=== PATIENT | male | born 1950 | race Caucasian/White ===

== ENCOUNTER 2019-12-07 14:45 | Outpatient (CLI) | payer MEDICARE, SELFPAY ==
[2019-12-07 15:21] LABS: Add Urine Microscopic? NO; Appearance Urine Clear (Clear); Bilirubin Urine Negative (Negative); Blood Urine Negative (Negative); Color Urine Yellow (Yellow); Glucose Urine UA Negative (Negative); Ketones Urine Negative (Negative); Leukocyte Esterase Ur Negative (Negative); Nitrate Urine Negative (Negative); Protein Urine Negative (Negative); Specific Grav Ur >= 1.030 (1.010-1.020); Urobilinogen Urine 0.2 mg/dL (0.2-1.0)
[2019-12-07 15:32] LABS: Hemoglobin A1C 5.5 % (<5.7)
[2019-12-07 15:39] LABS: Alanine Aminotransferase 24 U/L (16-63); Albumin Level 3.8 g/dL (3.4-5.0); Alkaline Phosphatase 59 U/L (46-116); Anion Gap 13.4 mmol/L (7-16); Aspartate Amino Transferase 19 U/L (15-37); Bilirubin,Total 0.6 mg/dL (0.00-1.00); Blood Urea Nitrogen 22 mg/dL (7-18); Calcium 8.6 mg/dL (8.5-10.1); Carbon Dioxide 27 mmol/L (21-32); Chloride 108 mmol/L (98-108); Cholesterol 225 mg/dL (0-200); Creatine Kinase 123 U/L (39-308); Estimated Glomerular Filt Rate > 60; Free T4 Free Thyroxine 0.96 ng/dL (0.76-1.46); Glucose 88 mg/dL (70-99); HDL Direct 44 mg/dL (40-60); LDL Cholesterol Calculated 142 mg/dL (<130); Osmolality Calculated 300 mOsm/kg (285-295); Potassium 4.4 mmol/L (3.5-5.1); Sodium 144 mmol/L (136-145); Thyroid Stimulating Hormone 1.98 uIU/mL (0.36-3.74); Total Protein 7.3 g/dL (6.4-8.2); Triglycerides 193 mg/dL (0-150)
== END 2019-12-07 14:46 | disposition home or self-care (01) ==
LOC: CHSLAB 14:47
PROVIDERS: PCP Internal Medicine; Visit Provider Internal Medicine
DX: E78.2 Mixed hyperlipidemia (principal); I10 Essential (primary) hypertension; E03.4 Atrophy of thyroid (acquired); R73.01 Impaired fasting glucose
CPT/HCPCS: 36415; 80053; 80061; 81003; 82550; 83036; 84439; 84443

== ENCOUNTER 2020-03-06 08:15 | Outpatient (CLI) | payer MEDICARE, SELFPAY ==
[2020-03-06 09:06] LABS: Cholesterol 162 mg/dL (0-200); HDL Direct 43 mg/dL (40-60); LDL Cholesterol Calculated 83 mg/dL (<130); Triglycerides 181 mg/dL (0-150)
== END 2020-03-06 08:16 | disposition home or self-care (01) ==
LOC: CHSLAB 08:16
PROVIDERS: PCP Internal Medicine; Visit Provider Internal Medicine
DX: E78.5 Hyperlipidemia, unspecified (principal); E03.9 Hypothyroidism, unspecified
CPT/HCPCS: 36415; 80061

== ENCOUNTER 2020-07-04 09:31 | Outpatient (CLI) | payer MEDICARE, SELFPAY ==
[2020-07-04 09:43] LABS: Appearance Urine Clear (Clear); Basophils Absolute Auto 0.02 K/mm3 (0.00-0.10); Basophils Percent Auto 0.3 % (0.0-1.0); Bilirubin Urine Negative (Negative); Color Urine Yellow (Yellow); Eosinophils Absolute Auto 0.19 K/mm3 (0.02-0.50); Eosinophils Percent Auto 2.8 % (1.0-6.0); Glucose Urine UA Negative (Negative); Hematocrit 44.1 % (37.0-46.0); Hemoglobin 14.8 g/dL (12.4-15.3); Immature Granulocyte Absolute 0.04 K/mm3 (0.00-0.00); Immature Granulocyte Percent A 0.6 % (0.0-0.0); Ketones Urine Negative (Negative); Leukocyte Esterase Ur Negative LEU/UL (Negative); Lymphocytes Absolute Auto 1.92 K/mm3 (1.10-4.50); Lymphocytes Percent Auto 28.2 % (18.0-42.0); Mean Corpuscular HGB Conc 33.6 g/dL (32.0-36.0); Mean Corpuscular Hemoglobin 32.6 pg (27.0-31.0); Mean Corpuscular Volume 97.1 fL (78.0-102.0); Mean Platelet Volume 9.1 fl (8.7-11.0); Monocytes Percent Auto 10.3 % (2.0-11.0); Neutrophils Absolute Auto 3.9 K/mm3 (1.7-7.2); Neutrophils Percent Auto 57.8 % (50.0-70.0); Nitrate Urine Negative (Negative); Platelet Count Result 211 K/mm3 (150-420); Protein Urine Negative (Negative); Red Blood Count 4.54 M/mm3 (4.70-6.10); Red Cell Distribution Width 13.6 % (11.6-14.4); Specific Grav Ur >= 1.030 (1.010-1.020); Urobilinogen Urine 0.2 mg/dL (0.2-1.0); White Blood Count 6.8 K/mm3 (4.8-10.8); pH Urine 5.5 (5.0-8.0)
[2020-07-04 09:46] LABS: Add Urine Microscopic? YES; Blood Urine Trace-Intact (Negative)
[2020-07-04 09:48] LABS: Bacteria Urine Trace /hpf; RBC Urine 0-2 /hpf (0-2); WBC Urine 0-3 /hpf (0-3)
[2020-07-04 09:49] LABS: Mucus Urine Few /lpf
[2020-07-04 09:57] LABS: Creatinine Urine 221.28 mg/dL (40-278); MALB Creatinine Ratio 5.8 mg/g (0-30); Microalbumin Urine Random < 13.0 mg/L
[2020-07-04 10:01] LABS: Hemoglobin A1C 5.4 % (<5.7)
[2020-07-04 10:37] LABS: Alanine Aminotransferase 25 U/L (16-63); Albumin Level 3.7 g/dL (3.4-5.0); Alkaline Phosphatase 64 U/L (46-116); Anion Gap 9 mmol/L (8-16); Aspartate Amino Transferase 17 U/L (15-37); Bilirubin,Total 0.6 mg/dL (0.00-1.00); Blood Urea Nitrogen 19 mg/dL (7-18); Calcium 8.6 mg/dL (8.5-10.1); Carbon Dioxide 29 mmol/L (21-32); Chloride 106 mmol/L (98-108); Cholesterol 149 mg/dL (0-200); Creatine Kinase 77 U/L (39-308); Estimated Glomerular Filt Rate > 60; Free T3 2.27 pg/mL (2.18-3.98); Free T4 Free Thyroxine 0.88 ng/dL (0.76-1.46); Glucose 100 mg/dL (70-99); HDL Direct 41 mg/dL (40-60); LDL Cholesterol Calculated 83 mg/dL (<130); Osmolality Calculated 300 mOsm/kg (285-295); Potassium 4.3 mmol/L (3.5-5.1); Sodium 144 mmol/L (136-145); Thyroid Stimulating Hormone 2.28 uIU/mL (0.36-3.74); Total Protein 6.9 g/dL (6.4-8.2); Triglycerides 127 mg/dL (0-150)
== END 2020-07-04 09:32 | disposition home or self-care (01) ==
LOC: CHSLAB 09:33
PROVIDERS: PCP Internal Medicine; Visit Provider Internal Medicine
DX: E89.0 Postprocedural hypothyroidism (principal); E78.5 Hyperlipidemia, unspecified; R73.01 Impaired fasting glucose
CPT/HCPCS: 36415; 80053; 80061; 81001; 82043; 82550; 83036; 84439; 84443; 84481; 85025

== ENCOUNTER 2020-09-11 08:54 | Outpatient (CLI) | payer MEDICARE, SELFPAY ==
[2020-09-11 10:40] LABS: Aspartate Amino Transferase 21 U/L (15-37); Cholesterol 169 mg/dL (0-200); HDL Direct 43 mg/dL (40-60); LDL Cholesterol Calculated 91 mg/dL (<130); Triglycerides 174 mg/dL (0-150)
== END 2020-09-11 08:55 | disposition home or self-care (01) ==
LOC: CHSLAB 08:57
PROVIDERS: PCP Internal Medicine; Visit Provider Specialist
DX: E78.5 Hyperlipidemia, unspecified (principal)
CPT/HCPCS: 36415; 80061; 84450

== ENCOUNTER 2020-12-23 08:45 | Outpatient (CLI) | payer MEDICARE, SELFPAY ==
[2020-12-23 09:33] LABS: Aspartate Amino Transferase 21 U/L (15-37); Cholesterol 139 mg/dL (0-200); HDL Direct 40 mg/dL (40-60); LDL Cholesterol Calculated 67 mg/dL (<130); Triglycerides 159 mg/dL (0-150)
== END 2020-12-23 08:46 | disposition home or self-care (01) ==
LOC: CHSLAB 08:49
PROVIDERS: PCP Internal Medicine; Visit Provider Specialist
DX: E78.5 Hyperlipidemia, unspecified (principal)
CPT/HCPCS: 36415; 80061; 84450

== ENCOUNTER 2021-01-06 08:31 | Outpatient (CLI) | payer MEDICARE, SELFPAY ==
[2021-01-06 08:45] LABS: Appearance Urine Clear (Clear); Bilirubin Urine Negative (Negative); Color Urine Light Yellow (Yellow); Glucose Urine UA Negative (Negative); Ketones Urine Negative (Negative); Leukocyte Esterase Ur Negative LEU/UL (Negative); Nitrate Urine Negative (Negative); Protein Urine Negative (Negative); Specific Grav Ur >= 1.030 (1.010-1.020); Urobilinogen Urine 0.2 mg/dL (0.2-1.0)
[2021-01-06 08:45] LABS: Basophils Absolute Auto 0.03 K/mm3 (0.00-0.10); Basophils Percent Auto 0.5 % (0.0-1.0); Eosinophils Absolute Auto 0.23 K/mm3 (0.02-0.50); Eosinophils Percent Auto 3.5 % (1.0-6.0); Hematocrit 41.8 % (37.0-46.0); Hemoglobin 14.3 g/dL (12.4-15.3); Immature Granulocyte Absolute 0.03 K/mm3 (0.00-0.00); Immature Granulocyte Percent A 0.5 % (0.0-0.0); Lymphocytes Absolute Auto 1.81 K/mm3 (1.10-4.50); Lymphocytes Percent Auto 27.8 % (18.0-42.0); Mean Corpuscular HGB Conc 34.2 g/dL (32.0-36.0); Mean Corpuscular Hemoglobin 33.4 pg (27.0-31.0); Mean Corpuscular Volume 97.7 fL (78.0-102.0); Mean Platelet Volume 9.3 fl (8.7-11.0); Monocytes Absolute Auto 0.65 K/mm3 (0.10-0.90); Neutrophils Absolute Auto 3.8 K/mm3 (1.7-7.2); Neutrophils Percent Auto 57.7 % (50.0-70.0); Platelet Count Result 192 K/mm3 (150-420); Red Blood Count 4.28 M/mm3 (4.70-6.10); Red Cell Distribution Width 13.7 % (11.6-14.4); White Blood Count 6.5 K/mm3 (4.8-10.8)
[2021-01-06 08:53] LABS: Add Urine Microscopic? YES; Bacteria Urine None seen /hpf; Blood Urine Trace-Intact (Negative); Mucus Urine Few /lpf; RBC Urine 0-2 /hpf (0-2); Squamous Epithelial Cell Urine Rare /hpf (Few); WBC Urine None seen /hpf (0-3)
[2021-01-06 09:00] LABS: Creatinine Urine 153.62 mg/dL (40-278); MALB Creatinine Ratio 8.4 mg/g (0-30); Microalbumin Urine Random < 13.0 mg/L
[2021-01-06 09:14] LABS: Hemoglobin A1C 5.4 % (<5.7)
[2021-01-06 09:33] LABS: Alanine Aminotransferase 39 U/L (16-63); Albumin Level 3.7 g/dL (3.4-5.0); Alkaline Phosphatase 76 U/L (46-116); Anion Gap 12 mmol/L (8-16); Aspartate Amino Transferase 26 U/L (15-37); Bilirubin,Total 0.5 mg/dL (0.00-1.00); Blood Urea Nitrogen 25 mg/dL (7-18); Calcium 8.8 mg/dL (8.5-10.1); Carbon Dioxide 25 mmol/L (21-32); Chloride 110 mmol/L (98-108); Cholesterol 130 mg/dL (0-200); Creatine Kinase 107 U/L (39-308); Estimated Glomerular Filt Rate > 60; Free T3 2.44 pg/mL (2.18-3.98); Free T4 Free Thyroxine 0.92 ng/dL (0.76-1.46); Glucose 104 mg/dL (70-99); HDL Direct 37 mg/dL (40-60); LDL Cholesterol Calculated 53 mg/dL (<130); Osmolality Calculated 308 mOsm/kg (285-295); Potassium 4.6 mmol/L (3.5-5.1); Prostate Specific Antigen 1.3 ng/mL (< OR = 4.0); Sodium 147 mmol/L (136-145); Thyroid Stimulating Hormone 0.67 uIU/mL (0.36-3.74); Total Protein 6.7 g/dL (6.4-8.2); Triglycerides 200 mg/dL (0-150)
== END 2021-01-06 08:32 | disposition home or self-care (01) ==
LOC: CHSLAB 08:34
PROVIDERS: PCP Internal Medicine; Visit Provider Internal Medicine
DX: E03.9 Hypothyroidism, unspecified (principal); E78.5 Hyperlipidemia, unspecified; R73.01 Impaired fasting glucose; Z12.5 Encounter for screening for malignant neoplasm of prostate
CPT/HCPCS: 36415; 80053; 80061; 81001; 82043; 82550; 83036; 84153; 84439; 84443; 84481; 85025; G0103

== ENCOUNTER 2021-08-28 09:48 | Outpatient (CLI) | payer MEDICARE, SELFPAY ==
[2021-08-28 10:11] LABS: Hemoglobin A1C 5.7 % (<5.7)
[2021-08-28 10:21] LABS: Appearance Urine Clear (Clear); Bilirubin Urine Negative (Negative); Color Urine Light Yellow (Yellow); Glucose Urine UA Negative (Negative); Ketones Urine Negative (Negative); Leukocyte Esterase Ur Negative (Negative); Nitrate Urine Negative (Negative); Protein Urine Negative (Negative); Specific Grav Ur >= 1.030 (1.010-1.020); Urobilinogen Urine 0.2 mg/dL (0.2-1.0); pH Urine 5.5 (5.0-8.0)
[2021-08-28 10:26] LABS: Add Urine Microscopic? YES; Blood Urine Trace-Intact (Negative)
[2021-08-28 10:27] LABS: Bacteria Urine Trace /hpf; Mucus Urine Few /lpf; RBC Urine 0-2 /hpf (0-2); WBC Urine 0-3 /hpf (0-3)
[2021-08-28 10:46] LABS: Alanine Aminotransferase 28 U/L (16-63); Albumin Level 3.7 g/dL (3.4-5.0); Alkaline Phosphatase 60 U/L (46-116); Anion Gap 7 mmol/L (8-16); Aspartate Amino Transferase 18 U/L (15-37); Bilirubin,Total 0.5 mg/dL (0.00-1.00); Blood Urea Nitrogen 24 mg/dL (7-18); Calcium 8.4 mg/dL (8.5-10.1); Carbon Dioxide 30 mmol/L (21-32); Chloride 105 mmol/L (98-108); Cholesterol 150 mg/dL (0-200); Creatine Kinase 84 U/L (39-308); Estimated Glomerular Filt Rate > 60; Free T3 2.71 pg/mL (2.18-3.98); Free T4 Free Thyroxine 0.98 ng/dL (0.76-1.46); Glucose 100 mg/dL (70-99); HDL Direct 39 mg/dL (40-60); LDL Cholesterol Calculated 73 mg/dL (<130); Osmolality Calculated 298 mOsm/kg (285-295); Potassium 4.4 mmol/L (3.5-5.1); Sodium 142 mmol/L (136-145); Thyroid Stimulating Hormone 1.84 uIU/mL (0.36-3.74); Triglycerides 189 mg/dL (0-150)
== END 2021-08-28 09:49 | disposition home or self-care (01) ==
LOC: CHSLAB 09:51
PROVIDERS: PCP Internal Medicine; Visit Provider Internal Medicine
DX: R73.01 Impaired fasting glucose (principal); E78.2 Mixed hyperlipidemia; I10 Essential (primary) hypertension; E03.4 Atrophy of thyroid (acquired)
CPT/HCPCS: 36415; 80053; 80061; 81001; 82550; 83036; 84439; 84443; 84481

== ENCOUNTER 2022-03-25 08:00 | Outpatient (CLI) | payer MEDICARE, SELFPAY ==
[2022-03-25 08:17] LABS: Basophils Absolute Auto 0.04 K/mm3 (0.00-0.10); Basophils Percent Auto 0.5 % (0.0-1.0); Eosinophils Absolute Auto 0.28 K/mm3 (0.02-0.50); Eosinophils Percent Auto 3.3 % (1.0-6.0); Hematocrit 44.9 % (37.0-46.0); Hemoglobin 15.3 g/dL (12.4-15.3); Immature Granulocyte Absolute 0.05 K/mm3 (0.00-0.00); Immature Granulocyte Percent A 0.6 % (0.0-0.0); Lymphocytes Absolute Auto 2.72 K/mm3 (1.10-4.50); Mean Corpuscular HGB Conc 34.1 g/dL (32.0-36.0); Mean Corpuscular Hemoglobin 32.9 pg (27.0-31.0); Mean Corpuscular Volume 96.6 fL (78.0-102.0); Mean Platelet Volume 9.1 fl (8.7-11.0); Monocytes Absolute Auto 0.85 K/mm3 (0.10-0.90); Neutrophils Absolute Auto 4.6 K/mm3 (1.7-7.2); Neutrophils Percent Auto 53.6 % (50.0-70.0); Platelet Count Result 205 K/mm3 (150-420); Red Blood Count 4.65 M/mm3 (4.70-6.10); Red Cell Distribution Width 13.7 % (11.6-14.4); White Blood Count 8.5 K/mm3 (4.8-10.8)
[2022-03-25 08:26] LABS: Add Urine Microscopic? NO; Appearance Urine Clear (Clear); Bilirubin Urine Negative (Negative); Blood Urine Negative (Negative); Color Urine Yellow (Yellow); Glucose Urine UA Negative (Negative); Ketones Urine Negative (Negative); Leukocyte Esterase Ur Negative (Negative); Nitrate Urine Negative (Negative); Protein Urine Negative (Negative); Specific Grav Ur >= 1.030 (1.010-1.020); Urobilinogen Urine 0.2 mg/dL (0.2-1.0)
[2022-03-25 08:40] LABS: Hemoglobin A1C 5.5 % (<5.7)
[2022-03-25 09:05] LABS: Alanine Aminotransferase 23 U/L (16-63); Alkaline Phosphatase 62 U/L (46-116); Anion Gap 7 mmol/L (8-16); Aspartate Amino Transferase 18 U/L (15-37); Bilirubin,Total 0.7 mg/dL (0.00-1.00); Blood Urea Nitrogen 24 mg/dL (7-18); Calcium 8.8 mg/dL (8.5-10.1); Carbon Dioxide 31 mmol/L (21-32); Chloride 105 mmol/L (98-108); Cholesterol 185 mg/dL (0-200); Creatine Kinase 99 U/L (39-308); Estimated Glomerular Filt Rate 60; Free T3 2.95 pg/mL (2.18-3.98); Free T4 Free Thyroxine 0.75 ng/dL (0.76-1.46); Glucose 101 mg/dL (70-99); HDL Direct 46 mg/dL (40-60); LDL Cholesterol Calculated 98 mg/dL (<130); Osmolality Calculated 300 mOsm/kg (285-295); Potassium 4.1 mmol/L (3.5-5.1); Prostate Specific Antigen 1.4 ng/mL (< OR = 4.0); Sodium 143 mmol/L (136-145); Thyroid Stimulating Hormone 5.55 uIU/mL (0.36-3.74); Total Protein 7.4 g/dL (6.4-8.2); Triglycerides 205 mg/dL (0-150)
== END 2022-03-25 08:01 | disposition home or self-care (01) ==
LOC: CHSLAB 08:02
PROVIDERS: PCP Internal Medicine; Visit Provider Internal Medicine
DX: E89.0 Postprocedural hypothyroidism (principal); E78.2 Mixed hyperlipidemia; R73.01 Impaired fasting glucose; I10 Essential (primary) hypertension; Z12.5 Encounter for screening for malignant neoplasm of prostate
CPT/HCPCS: 36415; 80053; 80061; 81003; 82550; 83036; 84153; 84439; 84443; 84481; 85025; G0103

== ENCOUNTER 2022-04-27 14:25 | Outpatient (CLI) | payer MEDICARE, SELFPAY ==
--- NOTE | ~2022-04-27 | XR_ITS ---
XR chest 2V 04/27/2022 14:51 Indication: Upper respiratory infection. Congestion. Cough. Procedure: 2 view chest Comparison: 01/30/2018 Findings: Heart size normal. Chronic left basilar atelectasis/scarring unchanged. No acute focal pneu monia, pleural effusion, edema or pneumothorax. No acute osseous abnormality. Impression: 1: No acute cardiopulmonary disease. Reviewed, dictated and finalized at location B. IT ANALYST Impression: 1: No acute cardiopulmonary disease.
[2022-04-27 14:45] LABS: Basophils Absolute Auto 0.04 K/mm3 (0.00-0.10); Basophils Percent Auto 0.5 % (0.0-1.0); Eosinophils Absolute Auto 0.19 K/mm3 (0.02-0.50); Eosinophils Percent Auto 2.3 % (1.0-6.0); Hematocrit 44.1 % (37.0-46.0); Immature Granulocyte Absolute 0.03 K/mm3 (0.00-0.00); Immature Granulocyte Percent A 0.4 % (0.0-0.0); Lymphocytes Absolute Auto 1.48 K/mm3 (1.10-4.50); Lymphocytes Percent Auto 18.3 % (18.0-42.0); Mean Corpuscular Hemoglobin 32.5 pg (27.0-31.0); Mean Corpuscular Volume 95.7 fL (78.0-102.0); Mean Platelet Volume 9.5 fl (8.7-11.0); Monocytes Percent Auto 11.1 % (2.0-11.0); Neutrophils Absolute Auto 5.5 K/mm3 (1.7-7.2); Neutrophils Percent Auto 67.4 % (50.0-70.0); Platelet Count Result 176 K/mm3 (150-420); Red Blood Count 4.61 M/mm3 (4.70-6.10); Red Cell Distribution Width 13.2 % (11.6-14.4); White Blood Count 8.1 K/mm3 (4.8-10.8)
[2022-04-27 15:20] LABS: Influenza A QL RT-PCR Negative (Negative); Influenza B QL RT-PCR Negative (Negative); SARS-CoV-2 RNA PCR Negative (Negative)
== END 2022-04-27 14:26 | disposition home or self-care (01) ==
LOC: CHSLAB 14:26
PROVIDERS: PCP Internal Medicine; Visit Provider Internal Medicine
DX: J06.9 Acute upper respiratory infection, unspecified (principal); R09.89 Other specified symptoms and signs involving the circulatory and respiratory systems; Z20.822 Contact with and (suspected) exposure to COVID-19
CPT/HCPCS: 36415; 71046; 85025; 87636

== ENCOUNTER 2022-10-26 09:03 | Outpatient (CLI) | payer MEDICARE, SELFPAY ==
[2022-10-26 09:17] LABS: Appearance Urine Clear (Clear); Basophils Absolute Auto 0.03 K/mm3 (0.00-0.10); Basophils Percent Auto 0.4 % (0.0-1.0); Bilirubin Urine Negative (Negative); Blood Urine Trace-Intact (Negative); Color Urine Yellow (Yellow); Eosinophils Absolute Auto 0.18 K/mm3 (0.02-0.50); Eosinophils Percent Auto 2.5 % (1.0-6.0); Glucose Urine UA Negative (Negative); Hematocrit 42.4 % (37.0-46.0); Hemoglobin 14.6 g/dL (12.4-15.3); Immature Granulocyte Absolute 0.04 K/mm3 (0.00-0.00); Immature Granulocyte Percent A 0.5 % (0.0-0.0); Ketones Urine Negative (Negative); Leukocyte Esterase Ur Negative LEU/UL (Negative); Lymphocytes Absolute Auto 2.01 K/mm3 (1.10-4.50); Lymphocytes Percent Auto 27.5 % (18.0-42.0); Mean Corpuscular HGB Conc 34.4 g/dL (32.0-36.0); Mean Corpuscular Hemoglobin 32.3 pg (27.0-31.0); Mean Corpuscular Volume 93.8 fL (78.0-102.0); Mean Platelet Volume 9.1 fl (8.7-11.0); Monocytes Absolute Auto 0.62 K/mm3 (0.10-0.90); Monocytes Percent Auto 8.5 % (2.0-11.0); Neutrophils Absolute Auto 4.4 K/mm3 (1.7-7.2); Neutrophils Percent Auto 60.6 % (50.0-70.0); Nitrate Urine Negative (Negative); Platelet Count Result 212 K/mm3 (150-420); Protein Urine Negative (Negative); Red Blood Count 4.52 M/mm3 (4.70-6.10); Red Cell Distribution Width 13.9 % (11.6-14.4); Specific Grav Ur >= 1.030 (1.010-1.020); Urobilinogen Urine 0.2 mg/dL (0.2-1.0); White Blood Count 7.3 K/mm3 (4.8-10.8)
[2022-10-26 09:23] LABS: Add Urine Microscopic? YES; Bacteria Urine Rare /hpf; RBC Urine None seen /hpf (0-2); WBC Urine None seen /hpf (0-3)
[2022-10-26 11:44] LABS: Hemoglobin A1C 6.4 % (<5.7)
[2022-10-26 12:01] LABS: Alanine Aminotransferase 39 U/L (16-63); Alkaline Phosphatase 73 U/L (46-116); Anion Gap 7 mmol/L (8-16); Aspartate Amino Transferase 19 U/L (15-37); Bilirubin,Total 0.8 mg/dL (0.00-1.00); Blood Urea Nitrogen 16 mg/dL (7-18); Calcium 8.7 mg/dL (8.5-10.1); Carbon Dioxide 27 mmol/L (21-32); Chloride 107 mmol/L (98-108); Creatine Kinase 105 U/L (39-308); Estimated Glomerular Filt Rate > 60; Free T4 Free Thyroxine 0.93 ng/dL (0.76-1.46); Glucose 94 mg/dL (70-99); Osmolality Calculated 293 mOsm/kg (285-295); Potassium 3.9 mmol/L (3.5-5.1); Prostate Specific Antigen 1.8 ng/mL (< OR = 4.0); Sodium 141 mmol/L (136-145); Thyroid Stimulating Hormone 1.43 uIU/mL (0.36-3.74); Total Protein 6.7 g/dL (6.4-8.2)
== END 2022-10-26 09:04 | disposition home or self-care (01) ==
LOC: CHSLAB 09:07
PROVIDERS: PCP Internal Medicine; Visit Provider Internal Medicine
DX: E89.0 Postprocedural hypothyroidism (principal); E78.2 Mixed hyperlipidemia; R73.01 Impaired fasting glucose; N40.1 Benign prostatic hyperplasia with lower urinary tract symptoms; I10 Essential (primary) hypertension; N39.0 Urinary tract infection, site not specified
CPT/HCPCS: 36415; 80053; 81001; 82550; 83036; 84153; 84439; 84443; 84481; 85025

== ENCOUNTER 2023-04-20 10:17 | Outpatient (CLI) | payer MEDICARE, SELFPAY ==
[2023-04-20 11:06] LABS: Alanine Aminotransferase 35 U/L (16-63); Aspartate Amino Transferase 19 U/L (15-37)
== END 2023-04-20 10:18 | disposition home or self-care (01) ==
LOC: CHSLAB 10:19
PROVIDERS: PCP Internal Medicine; Visit Provider Internal Medicine
DX: B35.1 Tinea unguium (principal)
CPT/HCPCS: 36415; 84450; 84460

== ENCOUNTER 2023-05-02 09:04 | Outpatient (CLI) | payer MEDICARE, OTHER, SELFPAY ==
[2023-05-02 09:24] LABS: Appearance Urine Clear (Clear); Basophils Absolute Auto 0.03 K/mm3 (0.00-0.10); Basophils Percent Auto 0.4 % (0.0-1.0); Bilirubin Urine Negative (Negative); Blood Urine Negative (Negative); Color Urine Yellow (Yellow); Eosinophils Absolute Auto 0.19 K/mm3 (0.02-0.50); Eosinophils Percent Auto 2.6 % (1.0-6.0); Glucose Urine UA Negative (Negative); Hematocrit 42.3 % (37.0-46.0); Hemoglobin 14.5 g/dL (12.4-15.3); Immature Granulocyte Absolute 0.04 K/mm3 (0.00-0.00); Immature Granulocyte Percent A 0.6 % (0.0-0.0); Ketones Urine Negative (Negative); Leukocyte Esterase Ur Negative LEU/UL (Negative); Lymphocytes Absolute Auto 1.96 K/mm3 (1.10-4.50); Lymphocytes Percent Auto 27.1 % (18.0-42.0); Mean Corpuscular HGB Conc 34.3 g/dL (32.0-36.0); Mean Corpuscular Volume 96.4 fL (78.0-102.0); Mean Platelet Volume 9.2 fl (8.7-11.0); Monocytes Absolute Auto 0.66 K/mm3 (0.10-0.90); Monocytes Percent Auto 9.1 % (2.0-11.0); Neutrophils Absolute Auto 4.3 K/mm3 (1.7-7.2); Neutrophils Percent Auto 60.2 % (50.0-70.0); Nitrate Urine Negative (Negative); Platelet Count Result 216 K/mm3 (150-420); Protein Urine Negative (Negative); Red Blood Count 4.39 M/mm3 (4.70-6.10); Red Cell Distribution Width 13.4 % (11.6-14.4); Specific Grav Ur >= 1.030 (1.010-1.020); Urobilinogen Urine 0.2 mg/dL (0.2-1.0); White Blood Count 7.2 K/mm3 (4.8-10.8); pH Urine 5.5 (5.0-8.0)
[2023-05-02 09:29] LABS: Add Urine Microscopic? NO
[2023-05-02 09:35] LABS: Hemoglobin A1C 5.6 % (<5.7)
[2023-05-02 10:26] LABS: Alanine Aminotransferase 67 U/L (16-63); Albumin Level 3.5 g/dL (3.4-5.0); Alkaline Phosphatase 60 U/L (46-116); Anion Gap 5 mmol/L (8-16); Aspartate Amino Transferase 34 U/L (15-37); Bilirubin,Total 0.6 mg/dL (0.00-1.00); Blood Urea Nitrogen 21 mg/dL (7-18); Calcium 8.6 mg/dL (8.5-10.1); Carbon Dioxide 33 mmol/L (21-32); Chloride 104 mmol/L (98-108); Cholesterol 152 mg/dL (0-200); Creatine Kinase 110 U/L (39-308); Estimated Glomerular Filt Rate > 60; Glucose 97 mg/dL (70-99); HDL Direct 48 mg/dL (40-60); LDL Cholesterol Calculated 77 mg/dL (<130); Osmolality Calculated 297 mOsm/kg (285-295); Potassium 4.2 mmol/L (3.5-5.1); Sodium 142 mmol/L (136-145); Thyroid Stimulating Hormone 1.44 uIU/mL (0.36-3.74); Total Protein 6.7 g/dL (6.4-8.2); Triglycerides 133 mg/dL (0-150)
== END 2023-05-02 09:05 | disposition home or self-care (01) ==
PROVIDERS: PCP Internal Medicine; Visit Provider Internal Medicine
DX: E89.0 Postprocedural hypothyroidism (principal); N39.0 Urinary tract infection, site not specified; E78.2 Mixed hyperlipidemia; R73.01 Impaired fasting glucose; I10 Essential (primary) hypertension
CPT/HCPCS: 36415; 80053; 80061; 81003; 82550; 83036; 84439; 84443; 85025

== ENCOUNTER 2023-07-21 09:25 | Outpatient (CLI) | payer MEDICARE, SELFPAY ==
[2023-07-21 10:26] LABS: Cholesterol 201 mg/dL (0-200); HDL Direct 45 mg/dL (40-60); LDL Cholesterol Calculated 134 mg/dL (<130); Triglycerides 108 mg/dL (0-150)
== END 2023-07-21 09:26 | disposition home or self-care (01) ==
LOC: CHSLAB 09:29
PROVIDERS: PCP Internal Medicine
DX: E78.2 Mixed hyperlipidemia (principal)
CPT/HCPCS: 36415; 80061

== ENCOUNTER 2023-11-16 07:53 | Outpatient (CLI) | payer MEDICARE, SELFPAY ==
[2023-11-16 08:10] LABS: Appearance Urine Clear (Clear); Basophils Absolute Auto 0.04 K/mm3 (0.00-0.10); Basophils Percent Auto 0.5 % (0.0-1.0); Bilirubin Urine Negative (Negative); Blood Urine Trace-intact (Negative); Color Urine Yellow (Yellow); Eosinophils Absolute Auto 0.25 K/mm3 (0.02-0.50); Eosinophils Percent Auto 3.3 % (1.0-6.0); Glucose Urine UA Negative (Negative); Hematocrit 43.8 % (37.0-46.0); Hemoglobin 14.6 g/dL (12.4-15.3); Immature Granulocyte Absolute 0.02 K/mm3 (0.00-0.00); Immature Granulocyte Percent A 0.3 % (0.0-0.0); Ketones Urine Negative (Negative); Leukocyte Esterase Ur Negative LEU/UL (Negative); Lymphocytes Absolute Auto 2.25 K/mm3 (1.10-4.50); Lymphocytes Percent Auto 29.6 % (18.0-42.0); Mean Corpuscular HGB Conc 33.3 g/dL (32-36); Mean Corpuscular Volume 96.1 fL (78.0-102.0); Mean Platelet Volume 9.2 fl (8.7-11.0); Monocytes Percent Auto 10.5 % (2.0-11.0); Neutrophils Absolute Auto 4.23 K/mm3 (1.70-7.20); Neutrophils Percent Auto 55.8 % (50.0-70.0); Nitrate Urine Negative (Negative); Platelet Count Result 201 K/mm3 (150-420); Protein Urine Negative (Negative); Red Blood Count 4.56 M/mm3 (4.70-6.10); Red Cell Distribution Width 13.2 % (11.6-14.4); Specific Grav Ur 1.025 (1.010-1.020); Urobilinogen Urine 0.2 mg/dL (0.2-1.0); White Blood Count 7.6 K/mm3 (4.8-10.8)
[2023-11-16 08:15] LABS: Add Urine Microscopic? YES; Bacteria Urine Rare /hpf; RBC Urine 0-2 /hpf (0-2); WBC Urine None seen /hpf (0-3)
[2023-11-16 08:26] LABS: Hemoglobin A1C 5.6 % (<5.7)
[2023-11-16 09:07] LABS: Alanine Aminotransferase 90 U/L (16-63); Albumin Level 3.5 g/dL (3.4-5.0); Alkaline Phosphatase 65 U/L (46-116); Anion Gap 7 mmol/L (4-12); Aspartate Amino Transferase 38 U/L (15-37); Bilirubin,Total 0.6 mg/dL (0.00-1.00); Blood Urea Nitrogen 20 mg/dL (7-18); Calcium 8.3 mg/dL (8.5-10.1); Carbon Dioxide 29 mmol/L (21-32); Chloride 104 mmol/L (98-108); Cholesterol 110 mg/dL (0-200); Creatine Kinase 128 U/L (39-308); Estimated Glomerular Filt Rate > 60; Free T3 2.34 pg/mL (2.18-3.98); Free T4 Free Thyroxine 0.85 ng/dL (0.76-1.46); Glucose 96 mg/dL (70-99); HDL Direct 42 mg/dL (40-60); LDL Cholesterol Calculated 44 mg/dL (<130); Osmolality Calculated 292 mOsm/kg (285-295); Potassium 4.3 mmol/L (3.5-5.1); Sodium 140 mmol/L (136-145); Thyroid Stimulating Hormone 1.22 uIU/mL (0.36-3.74); Total Protein 6.8 g/dL (6.4-8.2); Triglycerides 121 mg/dL (0-150)
== END 2023-11-16 07:54 | disposition home or self-care (01) ==
PROVIDERS: PCP Internal Medicine; Visit Provider Internal Medicine
DX: E89.0 Postprocedural hypothyroidism (principal); E78.2 Mixed hyperlipidemia; N39.0 Urinary tract infection, site not specified; R73.01 Impaired fasting glucose; I10 Essential (primary) hypertension; Z12.5 Encounter for screening for malignant neoplasm of prostate
CPT/HCPCS: 36415; 80053; 80061; 81001; 82550; 83036; 84153; 84439; 84443; 84481; 85025; G0103

== ENCOUNTER 2023-12-30 09:58 | Outpatient (CLI) | payer MEDICARE, SELFPAY ==
[2023-12-30 11:27] LABS: Alanine Aminotransferase 202 U/L (16-63); Albumin Level 3.6 g/dL (3.4-5.0); Alkaline Phosphatase 74 U/L (46-116); Anion Gap 7 mmol/L (4-12); Aspartate Amino Transferase 95 U/L (15-37); Bilirubin,Total 0.9 mg/dL (0.00-1.00); Blood Urea Nitrogen 21 mg/dL (7-18); Calcium 8.2 mg/dL (8.5-10.1); Carbon Dioxide 27 mmol/L (21-32); Chloride 106 mmol/L (98-108); Estimated Glomerular Filt Rate > 60; Ferritin 115 ng/mL (26-388); GGT 60 U/L (15-85); Glucose 88 mg/dL (70-99); Iron 122 ug/dL (65-175); Osmolality Calculated 292 mOsm/kg (285-295); Potassium 4.5 mmol/L (3.5-5.1); Sodium 140 mmol/L (136-145); Total Protein 6.4 g/dL (6.4-8.2)
[2023-12-31 12:23] LABS: Hepatitis B Surface Antigen NON-REACTIVE (NON-REACTIVE)
[2023-12-31 14:08] LABS: Hepatitis A Antibody IgM NON-REACTIVE (NON-REACTIVE); Hepatitis B Core Antibody NON-REACTIVE (NON-REACTIVE)
[2024-01-01 05:32] LABS: Hepatitis C Virus Antibody NON-REACTIVE (NON-REACTIVE)
== END 2023-12-30 09:59 | disposition home or self-care (01) ==
PROVIDERS: PCP Internal Medicine; Visit Provider Internal Medicine Cardiovascular Disease
DX: R74.01 Elevation of levels of liver transaminase levels (principal)
CPT/HCPCS: 36415; 80053; 80074; 82728; 82977; 83540; 86038; 86039

== ENCOUNTER 2024-01-10 07:03 | Outpatient (CLI) | payer MEDICARE, OTHER, SELFPAY ==
--- NOTE | ~2024-01-10 | US_ITS ---
Limited Abdominal Sonogram: Real-time sonographic imaging of the right upper quadrant was performed. Clinical History: Abnormal liver enzymes Findings: The liver appears mildly heterogeneous, with no evidence of mass lesion or bile duct dilat ation. Main portal vein demonstrates normal direction of flow. The gallbladder is well distended, and appears normal with no evidence of gallstone or wall thickening. The common bile duct measures 6 mm. The visualized pancreas, aorta, and IVC are unremarkable. Impression: Probable fatty infiltration of the liver. Reviewed, dictated and finalized at location M. Impression: Probable fatty infiltration of the liver.
== END 2024-01-10 07:04 ==
LOC: CHSIMG 07:07
PROVIDERS: PCP Internal Medicine; Visit Provider Internal Medicine
DX: R74.8 Abnormal levels of other serum enzymes (principal)
CPT/HCPCS: 76705

== ENCOUNTER 2024-01-19 07:44 | Outpatient (CLI) | payer MEDICARE, SELFPAY ==
[2024-01-19 08:51] LABS: Alanine Aminotransferase 29 U/L (16-63); Albumin Level 3.5 g/dL (3.4-5.0); Alkaline Phosphatase 80 U/L (46-116); Anion Gap 6 mmol/L (4-12); Aspartate Amino Transferase 21 U/L (15-37); Bilirubin,Total 0.6 mg/dL (0.00-1.00); Blood Urea Nitrogen 18 mg/dL (7-18); Calcium 8.3 mg/dL (8.5-10.1); Carbon Dioxide 29 mmol/L (21-32); Chloride 106 mmol/L (98-108); Estimated Glomerular Filt Rate > 60; Glucose 96 mg/dL (70-99); Osmolality Calculated 293 mOsm/kg (285-295); Potassium 4.1 mmol/L (3.5-5.1); Sodium 141 mmol/L (136-145); Total Protein 6.4 g/dL (6.4-8.2)
== END 2024-01-19 07:45 | disposition home or self-care (01) ==
LOC: CHSLAB 07:45
PROVIDERS: PCP Internal Medicine; Visit Provider Internal Medicine
DX: R94.5 Abnormal results of liver function studies (principal)
CPT/HCPCS: 36415; 80053

== ENCOUNTER 2024-03-20 09:28 | Outpatient (CLI) | payer MEDICARE, SELFPAY ==
[2024-03-20 10:21] LABS: Alanine Aminotransferase 106 U/L (16-63); Albumin Level 3.4 g/dL (3.4-5.0); Alkaline Phosphatase 85 U/L (46-116); Anion Gap 5 mmol/L (4-12); Aspartate Amino Transferase 87 U/L (15-37); Bilirubin,Total 0.6 mg/dL (0.00-1.00); Blood Urea Nitrogen 14 mg/dL (7-18); Calcium 8.5 mg/dL (8.5-10.1); Carbon Dioxide 31 mmol/L (21-32); Chloride 105 mmol/L (98-108); Cholesterol 73 mg/dL (0-200); Creatine Kinase 125 U/L (39-308); Estimated Glomerular Filt Rate > 60; Glucose 96 mg/dL (70-99); HDL Direct 42 mg/dL (40-60); LDL Cholesterol Calculated 19 mg/dL (<130); Osmolality Calculated 292 mOsm/kg (285-295); Potassium 4.3 mmol/L (3.5-5.1); Sodium 141 mmol/L (136-145); Total Protein 6.6 g/dL (6.4-8.2); Triglycerides 59 mg/dL (0-150)
== END 2024-03-20 09:29 | disposition home or self-care (01) ==
PROVIDERS: PCP Internal Medicine; Visit Provider Internal Medicine Cardiovascular Disease
DX: I25.10 Atherosclerotic heart disease of native coronary artery without angina pectoris (principal); E78.2 Mixed hyperlipidemia
CPT/HCPCS: 36415; 80053; 80061; 82550

== ENCOUNTER 2024-12-10 07:57 | Outpatient (CLI) | payer MEDICARE, SELFPAY ==
--- OUTSIDE RECORDS SUMMARY | 2024-12-10 08:02 | XMS_ITS | Encounter Summary ---
Author Organization [facility] Address [address] [place] [address] Phone Care Team Providers Care Bookkeeping Machine Mechanic Name Role Phone Carrie Bernstein MD Primary Care Provider + [phone] Encounter Details Date Type Department Care Team (Latest Contact Info) Description 05/12/2022 Orders Only [facility] Cailin Snell, ZULEIMA [address] [facility] [address] [place] [address] Social History Tobacco Use Types Packs/Day Years Used Date Smoking Tobacco: Never Smokeless Tobacco: Never Alcohol Use Standard Drinks/Week Comments Yes 7 (1 standard drink = 0.6 oz pur e alcohol) Sex and Gender Information Value Date Recorded Sex Assigned at Not on file Legal Sex Male 12:15 AM BUDGET TECHNICIAN Gender Identity Not on file Sexual Orientation Not on file Occupation Industry Job Start Date Job End Date Not on file Not on file Not on file Not on file documented as of this encounter Plan of Treatment Not on file documented as of this encounter Procedures Procedure Name Priority Date/Time Associated Diagnosis Comments CARDIOLOGY DOCUMENT SCAN 05/12/2022 documented in this encounter Results * Cardiology Document Scan (05/12/2022) Anatomical Region Laterality Modality Other us Cailin Snell RN [facility] P ROCEDURES Final Result documented in this encounter Visit Diagnoses Not on filedocumented in this encounter Care Teams Bookkeeping Machine Mechanic Relationship Specialty Start Date End Date Carrie Bernstein MD [address] [place] [address] PCP - General 04/03/12 documented as of this encounter
--- OUTSIDE RECORDS SUMMARY | 2024-12-10 08:02 | XMS_ITS | Encounter Summary ---
Author Organization [facility] Address [address] [place] [address] Phone Care Team Providers Care Pricing Lead Name Role Phone Carrie Bernstein MD Primary Care Provider + [phone] Encounter Details Date Type Department Care Team (Latest Contact Info) Description 12/05/2012 Orders Only [facility] Cailin Snell RN [address] [facility] [address] [place] [address] Social History Tobacco Use Types Packs/Day Years Used Date Smoking Tobacco: Never Assessed Alcohol Use Standard Drinks/Week Comments Yes 0 (1 standard drink = 0.6 oz pur e alcohol) Sex and Gender Information Value Date Recorded Sex Assigned at Not on file Legal Sex Male 12:15 AM HAUNTED HISTORY TOUR GUIDE Gender Identity Not on file Sexual Orientation Not on file documented as of this encounter Plan of Treatment Not on file documented as of this encounter Procedures Procedure Name Priority Date/Time Associated Diagnosis Comments CARDIOLOGY DOCUMENT SCAN 12/05/2012 documented in this encounter Results * Cardiology Document Scan (12/05/2012) Anatomical Region Laterality Modality Other us Cailin Snell RN CV CARDIAC SERVICES P ROCEDURES Final Result documented in this encounter Visit Diagnoses Not on filedocumented in this encounter Care Teams Pricing Lead Relationship Specialty Start Date End Date Carrie Bernstein MD [address] [id number] PCP - General 04/03/12 documented as of this encounter
--- OUTSIDE RECORDS SUMMARY | 2024-12-10 08:02 | XMS_ITS | Clinical Summary ---
Author Organization [facility] Address [address] [place] [address] Care Team Providers Care Tennis Racket Repairer Name Role Phone Unavailable Primary Care Provider Unavailabl e Allergies No known active allergies Medications atorvastatin (LIPITOR) 80 mg tablet Active aspirin 81 mg tablet Active carvediloL (COREG) 3.125 mg tablet Take 3.125 mg by mouth in the morning and 3.125 mg in the evening. Active levothyroxine (SYNTHROID, UNITHROID) 88 mcg tablet Take 88 mcg by mouth 1 (one) time each day. 05/28/2023 Active omeprazole (PriLOSEC) [address] capsule Take 20 mg by mouth in the morning and at bedtime. 05/29/2023 Active rosuvastatin (CRESTOR) 40 mg tablet Take 40 mg by mouth 1 (one) time each day. Active Active Problems Problem Noted Date Diagnosed Date H/O partial thyroidectomy 06/13/2023 Essential hypertension 03/14/2019 CAD (coronary artery disease) 09/23/2016 Dyslipidemia 09/23/2016 Hypothyroidism 09/23/2016 Social History Tobacco Use Types Packs/Day Years Used Date Smoking Tobacco: Never Smokeless Tobacco: Never Tobacco Cessation:Counseling Given: Not Answered Alcohol Use Standard Drinks/Week Comments Not Currently 10 (1 standard drink = 0.6 oz pu re alcohol) Sex and Gender Information Value Date Recorded Sex Assigned at Not on file Legal Sex Male 8:16 AM PST Gender Identity Not on file Sexual Orientation Not on file Last Filed Vital Signs Vital Sign Reading Time Taken Comments Blood Pressure 176/68 06/13/2023 2:17 PM MST Pulse 59 06/13/2023 2:17 PM MST Temperature 36.6 C (97.8 F) 06/13/2023 2:17 PM MST Respiratory Rate - - Oxygen Saturation - - Inhaled Oxygen Concentration - - Weight - - Height - - Body Mass Index - - Plan of Treatment Health Maintenance Due Date Last Done Comments Dental Oral Exam 1950 Dental Prophylaxis 1950 Dental X-Ray: Bitewings 1950 Dental X-Ray: Full Mouth 1950 Dental X-Ray: Panoramic 1950
--- OUTSIDE RECORDS SUMMARY | 2024-12-10 08:02 | XMS_ITS | Encounter Summary ---
Author Organization [facility] Health Address [address] [place] [address] Care Team Providers Care Inspector Precision Name Role Phone Unavailable Primary Care Provider Unavailabl e Prior Encounters Date Type Department Care Team Description 06/13/2023 1:30 PM [facility] Office Visit [facility] [address], [address] [place] [address] Donald Underwood, ESTEFANY Last Filed Vital Signs Vital Sign Reading Time Taken Comments Blood Pressure 176/68 06/13/2023 2:17 PM [facility] Pulse 59 06/13/2023 2:17 PM [facility] Temperature 36.6 C (97.8 F) 06/13/2023 2:17 PM [facility] Respiratory Rate - - Oxygen Saturation - - Inhaled Oxygen Concentration - - Weight - - Height - - Body Mass Index - - Plan of Treatment Not on file Procedures Procedure Name Priority Date/Time Associated Diagnosis Comments 31 RECEMENT CROWN Routine 06/13/2023 1:3 0 PM MST SINGLE X-RAY Routine 06/13/2023 1:30 PM MST BITEWING - SINGLE RADIOGRAPHIC IMAGE Routine 06/13/2023 1:30 PM [facility] LIMITED ORAL EVALUATION - PROBLEM FOCUSED Routine 06/13/2023 1:30 PM [facility] DENTAL PLAN ENROLL 1 Routine 06/13/2023 1:30 PM [facility] Visit Diagnoses Not on file
--- OUTSIDE RECORDS SUMMARY | 2024-12-10 08:02 | XMS_ITS | Encounter Summary ---
Author Organization [facility] Address [address] [place] [address] Phone Care Team Providers Care Mrb Engineer Name Role Phone Carrie Bernstein MD Primary Care Provider + [phone] Encounter Details Date Type Department Care Team (Latest Contact Info) Description 01/30/2018 Orders Only [facility] Cailin Snell RN [address] [facility] [address] [place] [address] Social History Tobacco Use Types Packs/Day Years Used Date Smoking Tobacco: Never Alcohol Use Standard Drinks/Week Comments Yes 0 (1 standard drink = 0.6 oz pur e alcohol) Sex and Gender Information Value Date Recorded Sex Assigned at Not on file Legal Sex Male 12:15 AM WHEEL BLOCKER Gender Identity Not on file Sexual Orientation Not on file documented as of this encounter Plan of Treatment Not on file documented as of this encounter Procedures Procedure Name Priority Date/Time Associated Diagnosis Comments CARDIOLOGY DOCUMENT SCAN 01/30/2018 documented in this encounter Results * Cardiology Document Scan (01/30/2018) Anatomical Region Laterality Modality Other us Cailin Snell RN CV CARDIAC SERVICES P ROCEDURES Final Result documented in this encounter Visit Diagnoses Not on filedocumented in this encounter Care Teams Mrb Engineer Relationship Specialty Start Date End Date Carrie Bernstein MD [address] [id number] PCP - General 04/03/12 documented as of this encounter
--- OUTSIDE RECORDS SUMMARY | 2024-12-10 08:02 | XMS_ITS | Encounter Summary ---
Author Organization [facility] Address [address] [place] [address] Phone Care Team Providers Care Sr. Pricing Analyst Name Role Phone Carrie Bernstein MD Primary Care Provider + [phone] Encounter Details Date Type Department Care Team (Latest Contact Info) Description 07/21/2023 Orders Only [facility] Cailin Snell, ZULEIMA [address] [facility] [address] [place] [address] Social History Tobacco Use Types Packs/Day Years Used Date Smoking Tobacco: Never Smokeless Tobacco: Never Alcohol Use Standard Drinks/Week Comments Yes 7 (1 standard drink = 0.6 oz pur e alcohol) Sex and Gender Information Value Date Recorded Sex Assigned at Not on file Legal Sex Male 12:15 AM PATIENT ACCESS DIRECTOR Gender Identity Not on file Sexual Orientation Not on file Occupation Industry Job Start Date Job End Date Not on file Not on file Not on file Not on file documented as of this encounter Plan of Treatment Not on file documented as of this encounter Procedures Procedure Name Priority Date/Time Associated Diagnosis Comments SCAN - LABS 07/21/2023 documented in this encounter Results * SCAN - LABS (07/21/2023) us Cailin Snell RN Final Result documented in this encounter Visit Diagnoses Not on filedocumented in this encounter Care Teams Sr. Pricing Analyst Relationship Specialty Start Date End Date Carrie Bernstein MD [address] [place] [address] PCP - General 04/03/12 documented as of this encounter
--- OUTSIDE RECORDS SUMMARY | 2024-12-10 08:02 | XMS_ITS | Clinical Summary ---
Author Organization [facility] Address [address] [place] [address] Care Team Providers Care Manager Of International Name Role Phone Carrie Bernstein MD Primary Care Provider [phone] Félix Pearson MD, Robert Unavailable [phone] Tiffanie Mitchell [facility]- Unavailable [phone] Marcos Lee MD Unavailable [phone] Steve Dimas MD Unavailable [phone] Allergies No known active allergies Medications tamsulosin 0.4 MG Cap Take 1 tablet by mouth daily. 5 Active aspirin 81 MG tablet Take 1 tablet by mouth daily. 3 Active nitroGLYCERIN 0.4 MG SL tablet nitroglycerin tablet, sublingual 0.4 mg; take 1 tablet under tongue, for chest pain as directed as needed; 25; 3; -Dec-2012; Active 3 Active levothyroxine 88 MCG tablet Take 1 tablet by mouth daily. 9 Active omeprazole (PRILOSEC) 20 MG capsule 2 Active rosuvastatin (CRESTOR) 40 MG tablet TAKE 1 TABLET BY MOUTH EVERY DAY 90 tablet 1 3 Active carvedilol (COREG) 3.125 MG tablet TAKE 1 TABLET BY MOUTH TWICE A DAY 180 tablet 3 3 Active terbinafine (LAMISIL) 250 MG tablet Take 1 tablet (250 mg total) by mouth daily. 3 Active icosapent ethyl (VASCEPA) 1 G capsule TAKE TWO CAPSULES BY MOUTH TWICE A DAY WITH FOOD 180 capsule 1 4 Active Active Problems Problem Noted Date Diagnosed Date Essential hypertension 03/14/2019 CAD (coronary artery disease) 09/23/2016 Dyslipidemia 09/23/2016 Hypothyroidism 09/23/2016 Resolved Problems Problem Noted Date Diagnosed Date Resolved Date Pre-op examination 03/14/2019 0 Family History Medical History Relation Comments Heart Attack Mother Coronary artery disease Other Breast Cancer Sister Relation Status Comments Mother Other Alive Sister Social History Tobacco Use Types Packs/Day Years Used Date Smoking Tobacco: Never Smokeless Tobacco: Never Alcohol Use Standard Drinks/Week Comments Yes 0 (1 standard drink = 0.6 oz pur e alcohol) 5 per week Sex and Gender Information Value Date Recorded Sex Assigned at Not on file Legal Sex Male 11:02 PM CDT Gender Identity Not on file Sexual Orientation Not on file 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 Not on file Not on f ile Not on file Not on file Not on file Not on file Not on file Last Filed Vital Signs Vital Sign Reading Time Taken Comments Blood Pressure 102/64 05/19/2023 2:37 PM FUR CLIPPER Pulse 80 05/19/2023 2:37 PM FUR CLIPPER Temperature - - Respiratory Rate 18 05/19/2023 2:37 PM FUR CLIPPER Oxygen Saturation - - Inhaled Oxygen Concentration - - Weight 87.7 kg (193 lb 6.4 oz) 05/19/2023 2:37 P M FUR CLIPPER Height 177.8 cm (5' 10) 05/19/2023 2:37 PM FUR CLIPPER Body Mass Index 27.75 05/19/2023 2:37 PM FUR CLIPPER Plan of Treatment Health Maintenance Due Date Last Done Comments ASCVD Statin 1950 Colorectal Cancer Screening Colonoscopy (10 Years) 1950 Hepatitis C 08/17/1967 DTaP, Tdap and Td Vaccines (1 - Tdap) 1968 Pneumococcal Vaccine: 50+ Years (1 of 2 - PCV) 1968 Zoster Vaccines (1 of 2) 08/17/1999 Annual Medicare Wellness Visit 2014 COVID-19 Vaccine (1 - season) 2024 ASCVD LDL 07/21/2024 07/21/2023, 04/07, 12/23/2020, Additional history exists RSV Immunization or 60+ Years (1 - 1-dose 75+ series) 2024 Meningococcal B Vaccine Aged Out No l onger eligible based on patient's age to complete this topic Meningococcal Vaccine Aged Out No felipa neil eligible based on patient's age to complete this topic RSV Immunizations Under 20 Months Aged Out No longer eligible based on patient's age to complete this topic Procedures Procedure Name Priority Date/Time Associated Diagnosis Comments LIPID PANEL Routine 07/21/2023 Hyperlipidemia, mixed from Last 3 Months or Most Recently Relevant to Health Maintenance Results * LIPID PANEL (07/21/2023) CHOLESTEROL 201 HDL 45 TRIGLYCERIDES 108 LDL (CALCULATED) 134 07/21/2023 Steve Dimas MD LABORATORY Final Result from Last 3 Months or Most Recently Relevant to Health Maintenance Insurance MEDICARE MEDICARE [facility] Care Teams Manager Of International Relationship Specialty Start Date End Date Carrie Bernstein MD [address] [place] [address] PCP - General INTERNAL MEDICINE 07/20/16 Byron Heard MD [address] [place] [address] CARDIOVASCULAR DISEASE 07/20/16 Tiffanie Mitchell, ANP- [address] [facility] [address] [place] [address] NURSE PRACTITIONER 07/20/16 Marcos Lee MD [address] [address] ORTHOPAEDIC SURGERY 03/22/19 Steve Dimas MD [address] [address] INTERVENTIONAL CARDIOLOGY 05/19/23
--- OUTSIDE RECORDS SUMMARY | 2024-12-10 08:02 | XMS_ITS | Encounter Summary ---
Author Organization [facility] Address [address] [place] [address] Phone Care Team Providers Care Health Services Director Name Role Phone Carrie Bernstein MD Primary Care Provider + [phone] Encounter Details Date Type Department Care Team (Latest Contact Info) Description 05/02/2023 Orders Only [facility] Cailin Snell, ZULEIMA [address] [facility] [address] [place] [address] Social History Tobacco Use Types Packs/Day Years Used Date Smoking Tobacco: Never Smokeless Tobacco: Never Alcohol Use Standard Drinks/Week Comments Yes 7 (1 standard drink = 0.6 oz pur e alcohol) Sex and Gender Information Value Date Recorded Sex Assigned at Not on file Legal Sex Male 12:15 AM COLLECTION TEAM LEAD Gender Identity Not on file Sexual Orientation Not on file Occupation Industry Job Start Date Job End Date Not on file Not on file Not on file Not on file documented as of this encounter Plan of Treatment Not on file documented as of this encounter Procedures Procedure Name Priority Date/Time Associated Diagnosis Comments SCAN - LABS 05/02/2023 documented in this encounter Results * SCAN - LABS (05/02/2023) us Cailin Snell RN Final Result documented in this encounter Visit Diagnoses Not on filedocumented in this encounter Care Teams Health Services Director Relationship Specialty Start Date End Date Carrie Bernstein MD [address] [place] [address] PCP - General 04/03/12 documented as of this encounter
--- OUTSIDE RECORDS SUMMARY | 2024-12-10 08:03 | XMS_ITS | Clinical Summary ---
Author Organization [facility] Medical [facility] Address [address] [facility] [place] [address] Care Team Providers Care Property And Supply Officer Name Role Phone Carrie Bernstein MD Primary Care Provider [phone] Allergies No known active allergies Medications aspirin 81 mg tablet Active levothyroxine (SYNTHROID, LEVOTHROID) 88 mcg tablet 03/20/2018 Active tamsulosin (FLOMAX) 0.4 mg extended release capsule 06/11/2019 Act alta omeprazole (PriLOSEC) 20 mg capsule 06/16/2020 Active coQ10, ubiquinol, 100 mg capsule Take by mouth Active nitroglycerin (NITROSTAT) 0.[address] 1 tablet (0.4 mg total) under the tongue every 5 (five) minutes as needed for chest pain 25 tablet 3 07/20/2024 6 Active carvediloL (COREG) 3.125 mg tablet Take 1 tablet (3.125 mg total) by mouth 2 (two) times a day with meals 180 tablet 3 07/20/2024 6 Active evolocumab (Repatha SureClick) 140 mg/mL pen injector Inject 1 mL (140 mg total) under the skin every 14 (fourteen) days 6 mL 3 08/28/2024 Active Active Problems Problem Noted Date Diagnosed Date Coronary artery disease invo lving [place] coronary artery of [place] heart without angina pectoris 01/28/2024 Allergic conjunctivitis of both eyes 06/26/2020 Assessment & Plan (12/30/2022 3:59 PM CDT): Resolved w/o symptoms Assessment & Plan (12/17/2021 10:19 AM CDT): No itching sensation, no seasonal association w/ discomfort, not currently using allergy eye gtts Resolved Assessment & Plan (06/26/2020 8:28 AM INTERNATIONAL PROJECT ENGINEER): Restasis OU bid prn 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 Very mild SPEE OD with P1 reaction. 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 Woodson 1yr Assessment & Plan (12/17/2021 10:18 AM CDT): Not affecting ADLs, CTM Assessment & Plan (06/26/2020 8:27 AM INTERNATIONAL PROJECT ENGINEER): ADL being met 20/20 OU Observe RTC 1 yr Assessment & Plan (06/12/2019 12:03 PM INTERNATIONAL PROJECT ENGINEER): stable Assessment & Plan (06/20/2018 3:23 PM INTERNATIONAL PROJECT ENGINEER): Not VS. Monitor. 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 Encounters Date Type Department Care Team Description 12/03/2024 Telephone [facility] [address] [facility] [address] [place] [address] Vadim Bernstein MD Test Results 11/28/2024 Results Follow-Up [facility] [address] [facility] [address] [place] [address] Yazmin Retana RMA SCAN - LABS 11/16/2024 Orders Only [facility] Cailin Snell RN 09/25/2024 Telephone [facility] [address] [facility] [address] [place] [address] [place] [address] Vadim Bernstein MD from Last 3 Months Surgical History Surgery Date Site/Laterality Comments TOTAL HIP ARTHROPLASTY Left Total Hip Replacement, total right hip replacement OTHER SURGICAL HISTORY 06/06/2008 - 06/05/2009 L Thyroidectomy for goiter Medical History Medical History Date Comments Hypertension Family History Medical History Relation Name Comments Alzheimer's disease Father 2 Alzheime r's Disease; Cause of : Alzheimer's Disease Heart attack Mother 2 Myocardial Infa rction; Cause of : Myocardial Infarction Relation Name Status Comments Father 1 (Age 94) Father 2 Mother 1 (Age 76) Mother 2 Social History Tobacco Use Types Packs/Day Years Used Date Smoking Tobacco: Never Smokeless Tobacco: Never Tobacco Cessation:Counseling Given: Not Answered Alcohol Use Standard Drinks/Week Comments Yes 7 (1 standard drink = 0.6 oz pur e alcohol) Sex and Gender Information Value Date Recorded Sex Assigned at Not on file Legal Sex Male 12:15 AM INTERNATIONAL PROJECT ENGINEER Gender Identity Not on file Sexual Orientation Not on file Occupation Industry Job Start Date Job End Date Not on file Not on file Not on file Not on file Obstetrics History Last Filed Vital Signs Vital Sign Reading Time Taken Comments Blood Pressure 124/78 07/20/2024 10:22 AM INTERNATIONAL PROJECT ENGINEER Pulse 87 07/20/2024 10:22 AM INTERNATIONAL PROJECT ENGINEER Temperature - - Respiratory Rate 18 07/20/2024 10:22 AM INTERNATIONAL PROJECT ENGINEER Oxygen Saturation 98% 07/20/2024 10:22 AM INTERNATIONAL PROJECT ENGINEER Inhaled Oxygen Concentration - - Weight 88.5 kg (195 lb) 07/20/2024 10:22 AM INTERNATIONAL PROJECT ENGINEER Height 180.3 cm (5' 11) 07/20/2024 10:22 AM INTERNATIONAL PROJECT ENGINEER Body Mass Index 27.2 07/20/2024 10:22 AM INTERNATIONAL PROJECT ENGINEER Plan of Treatment Health Maintenance Due Date Last Done Comments Colon Cancer Screening-Colonoscopy 1950 Depression Screening 1950 Fall Risk Assessment 1950 Hepatitis C Screening 1950 DTaP/Tdap/Td Vaccine (1 - Tdap) 1960 Hepatitis B Screening 08/17/1967 Pneumococcal vaccine 65+ (1 of 1 - PCV) 08/17/1999 Zoster Vaccine (1 of 2) 08/17/1999 Well Visit 65+ 2014 Influenza Vaccine (#1) 2025 Procedures Procedure Name Priority Date/Time Associated Diagnosis Comments SCAN - LABS 11/16/2024 from Last 3 Months Results * SCAN - LABS (11/16/2024) Cailin Snell RN Final Result from Last 3 Months Insurance MEDICARE [facility] Address: [facility] [address] [place] [address] [facility] [place] [address] [facility] MEDICARE SUPPLEMENT INSURANCE [place] [id number] MEDICARE Care Teams Property And Supply Officer Relationship Specialty Start Date End Date Carrie Bernstein MD [address] [place] [address] PCP - General 04/03/12
--- OUTSIDE RECORDS SUMMARY | 2024-12-10 08:03 | XMS_ITS | Encounter Summary ---
Author Organization [facility] Address [address] [place] [address] Phone Care Team Providers Care Pilot Supervisor Name Role Phone Carrie Bernstein MD Primary Care Provider + [phone] Encounter Details Date Type Department Care Team (Latest Contact Info) Description 06/07/2006 Orders Only [facility] Cailin Snell RN [address] [facility] [address] [place] [address] Social History Tobacco Use Types Packs/Day Years Used Date Smoking Tobacco: Never Assessed Sex and Gender Information Value Date Recorded Sex Assigned at Not on file Legal Sex Male 12:15 AM PERFORMANCE IMPROVEMENT CONSULTANT Gender Identity Not on file Sexual Orientation Not on file documented as of this encounter Plan of Treatment Not on file documented as of this encounter Procedures Procedure Name Priority Date/Time Associated Diagnosis Comments CARDIOLOGY DOCUMENT SCAN 06/07/2006 documented in this encounter Results * Cardiology Document Scan (06/07/2006) Anatomical Region Laterality Modality Other Cailin Snell RN CV CARDIAC SERVICES P ROCEDURES Final Result documented in this encounter Visit Diagnoses Not on filedocumented in this encounter Care Teams Pilot Supervisor Relationship Specialty Start Date End Date Carrie Bernstein MD [address] [place], [place] [id number] PCP - General 04/03/12 documented as of this encounter
--- OUTSIDE RECORDS SUMMARY | 2024-12-10 08:03 | XMS_ITS | Clinical Summary ---
Author Organization [facility] Address [address] [facility] [place] [address] Care Team Providers Care Counter Hand Name Role Phone Unavailable Primary Care Provider Unavailabl e Source Comments [facility] [employer]non-owned Affiliates and Associated Physician Practices is amultiple site organization consisting of ambulatory clinics and hospital sitesin [place], [place], [place] and [place]. This disclosure is being madepursuant to the Care Everywhere program and may not contain all information available regarding this patient. Last updated 18.[facility] [employer] Social History Tobacco Use Types Packs/Day Years Used Date Smoking Tobacco: Never Assessed Sex and Gender Information Value Date Recorded Sex Assigned at Not on file Legal Sex Male 12:37 PM HOME HOSPICE RN Gender Identity Not on file Sexual Orientation Not on file Plan of Treatment Health Maintenance Due Date Last Done Comments COLOGUARD (AGES 45-75) - COL ON CA SCREENING 1949 COLON MONITORING 1949 COLONOSCOPY - COLON CA SCREENING 1949 CT COLONOGRAPHY - COLON CA SCREENING 1950 Colorectal Cancer Screening 1949 FIT - COLON CA SCREENING 1949 FLEX SIG - COLON CA SCREENING 1949 LIPID TESTING 1949 HEPATITIS C SCREENING 08/12/1967 DTAP/TDAP/TD VACCINES (1 - Tdap) 1968 PNEUMOCOCCAL VACCINE 50+ (1 of 1 - PCV) 08/17/1999 ZOSTER VACCINE (1 of 2) 08/17/1999 COVID-19 VACCINE ( - 2023-2 5 season) 2024 DEPRESSION SCREENING 06/06/2024 Respiratory Syncytial Virus (RSV) Vaccine Pt: or over 60 yrs (1 - 1-dose 75+ series) 2024 INFLUENZA VACCINE (Season Ended) 2025 HEPATITIS B VACCINE Aged Out No longe r eligible based on patient's age to complete this topic HIB VACCINE Aged Out No longer eligi ble based on patient's age to complete this topic HPV VACCINE Aged Out No longer eligi ble based on patient's age to complete this topic MENINGOCOCCAL (Group B) VACC INE SHARED DECISION-MAKING Aged Out No longer eligibl e based on patient's age to complete this topic MENINGOCOCCAL GROUPS A/C/Y/W VACCINE Aged Out No longer eligible b ased on patient's age to complete this topic
--- OUTSIDE RECORDS SUMMARY | 2024-12-10 08:03 | XMS_ITS | Referral Summary ---
Author Organization [facility] Medical [facility] Building 2 Address [address] [facility] [place] [address] Care Team Providers Care Helmet Hat Sweatband Puncher Name Role Phone Carrie Bernstein MD Primary Care Provider [phone] Encounters Date Type Department Care Team Description 12/03/2024 Telephone [facility] Card[facility] Office Building [address] [place] [address] Vadim Bernstein MD Test Results 11/28/2024 Results Follow-Up [place] [id number] [facility] Office Building [address] [place] [address] Yazmin Retana RMA SCAN - LABS 11/16/2024 Orders Only [facility] Cailin Snell, ZULEIMA 09/25/2024 Telephone [facility] Cardiology [address] [facility] Advanced Medicine 8th [place] [address] [place] [address] Vadim Bernstein MD from Last 3 Months Allergies No known active allergies Medications aspirin [...] Diagnosed Date Coronary artery disease invo lving [place] coronary artery of [place] heart without angina pectoris 01/28/2024 Allergic conjunctivitis of both eyes 06/26/2020 Assessment & Plan (12/30/2022 3:59 PM CDT): Resolved w/o symptoms Assessment & Plan (12/17/2021 10:19 AM CDT): No itching sensation, no seasonal association w/ discomfort, not currently using allergy eye gtts Resolved Assessment & Plan (06/26/2020 8:28 AM CHILD CARE TEACHER): Restasis OU bid prn 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 Very mild SPEE OD with P1 [...] CTM Assessment & Plan (06/26/2020 8:27 AM CHILD CARE TEACHER): ADL being met 20/20 OU Observe RTC 1 yr Assessment & Plan (06/12/2019 12:03 PM CHILD CARE TEACHER): stable Assessment & Plan (06/20/2018 3:23 PM CHILD CARE TEACHER): Not VS. Monitor. 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 Social History Tobacco Use Types Packs/Day Years Used Date Smoking Tobacco: Never Smokeless Tobacco: Never Tobacco Cessation:Counseling Given: Not Answered Alcohol Use Standard Drinks/Week Comments Yes 7 (1 standard drink = 0.6 oz pur e alcohol) Sex and Gender Information Value Date Recorded Sex Assigned at Not on file Legal Sex Male 12:15 AM CHILD CARE TEACHER Gender Identity Not on file Sexual Orientation Not on file Occupation Industry Job Start Date Job End Date Not on file Not on file Not on file Not on file Last Filed Vital Signs Vital Sign Reading Time Taken Comments Blood Pressure 124/78 07/20/2024 10:22 AM CHILD CARE TEACHER Pulse 87 07/20/2024 10:22 AM CHILD CARE TEACHER Temperature - - Respiratory Rate 18 07/20/2024 10:22 AM CHILD CARE TEACHER Oxygen Saturation 98% 07/20/2024 10:22 AM CHILD CARE TEACHER Inhaled Oxygen Concentration - - Weight 88.5 kg (195 lb) 07/20/2024 10:22 AM CHILD CARE TEACHER Height 180.3 cm (5' 11) 07/20/2024 10:22 AM CHILD CARE TEACHER Body Mass Index 27.2 07/20/2024 10:22 AM CHILD CARE TEACHER Plan of Treatment Not on file Procedures Procedure Name Priority Date/Time Associated Diagnosis Comments SCAN - LABS 11/16/2024 from Last 3 Months Results * SCAN - LABS (11/16/2024) Cailin Snell RN Final Result from Last 3 Months Insurance MEDICARE [facility] MEDICARE SUPPLEMENT INSURANCE MEDICARE Care Teams Helmet Hat Sweatband Puncher Relationship Specialty Start Date End Date Carrie Bernstein MD [address] [place] [address] PCP - General 04/03/12
--- OUTSIDE RECORDS SUMMARY | 2024-12-10 08:03 | XMS_ITS | Encounter Summary ---
Author Organization [facility] Address [address] [place] [address] Phone Care Team Providers Care As400 Programmer Name Role Phone Carrie Bernstein MD Primary Care Provider [phone] Encounter Details Date Type Department Care Team (Late st Contact Info) Description 11/28/2024 Results Follow-Up [facility] Cardiology [address] [facility] Medical Office Building [address] [place] [address] Yazmin Retana RMA SCAN - LABS Social History Tobacco Use Types Packs/Day Years Used Date Smoking Tobacco: Never Smokeless Tobacco: Never Alcohol Use Standard Drinks/Week Comments Yes 7 (1 standard drink = 0.6 oz pur e alcohol) Sex and Gender Information Value Date Recorded Sex Assigned at Not on file Legal Sex Male 12:15 AM IMPORT/EXPORT ANALYST Gender Identity Not on file Sexual Orientation Not on file Occupation Industry Job Start Date Job End Date Not on file Not on file Not on file Not on file documented as of this encounter Plan of Treatment Not on file documented as of this encounter Visit Diagnoses Not on filedocumented in this encounter Care Teams As400 Programmer Relationship Specialty Start Date End Date Carrie Bernstein MD [address] [place] [address] PCP - General 04/03/12 documented as of this encounter
[2024-12-10 08:36] LABS: Cholesterol 146 mg/dL (0-200); HDL Direct 45 mg/dL; Triglycerides 213 mg/dL (<150)
== END 2024-12-10 07:58 | disposition home or self-care (01) ==
PROVIDERS: PCP Internal Medicine; Visit Provider Internal Medicine
DX: E03.9 Hypothyroidism, unspecified (principal)
CPT/HCPCS: 36415; 80061

== ENCOUNTER 2024-12-13 12:11 | Outpatient (CLI) | payer MEDICARE, SELFPAY ==
--- NOTE | ~2024-12-13 | US_ITS ---
EXAMINATION: US carotid duplex BI DATE: 12/13/2024 16:17 CDT INDICATION: Failed TECHNIQUE: Grayscale, color Doppler, and pulsed Doppler images of the cervical carotid arteries were obtained. The degree of vessel stenosis is placed in one of the following categories: normal, <50%, 50-69%, >=7 0% but less than near-occlusion, near-occlusion, or total occlusion. Note that percent stenosis relative to normal distal artery lumen diameter is indirectly measured fro m velocity measurements as described originally by Jason, et al. Radiology 2003; 229:340-346 and upda savi by Marquez Ruffin et al STROKE 2012;43(3);915-921. COMPARISON: None. FINDINGS: There is mild atherosclerosis of both carotid arteries. Peak systolic velocity (in cm/s) is detailed below RIGHT: Right common carotid artery (CCA): 111 cm/s. Right internal carotid artery (ICA) PSV: 87 cm/s. Right ICA end-diastolic velocity (EDV): 31 cm/s. Right ICA/CCA PSV ratio is 0.78. Right external carotid artery (ECA): 83cm/s. There is antegrade flow in the right vertebral artery LEFT: Left common carotid artery (CCA): 112 cm/s. Left internal carotid artery (ICA) PSV: 84 cm/s. Left ICA end-diastolic velocity (EDV): 18 cm/s. Left ICA/CCA PSV ratio is 0.75. Left external carotid artery (ECA): 125cm/s. There is antegrade flow in the left vertebral artery. IMPRESSION: 1. Less than 50% stenosis in the right internal carotid artery. 2. Less than 50% stenosis in the left internal carotid artery. Reviewed, dictated and finalized at location A.
--- NOTE | ~2024-12-13 | US_ITS ---
Thyroid ultrasound. Clinical History: Hypothyroidism Findings: Real-time sonography of the thyroid gland was performed. The right lobe measures 2.8 x 0.9 x 1.5 cm. Prior left hemithyroidectomy The isthmus is 3 mm in AP diameter. There is a 4 mm cystic nodule at the right upper thyroid pole. Impression: Prior left thyroidectomy. 4 mm cystic nodule in the right thyroid lobe, benign. Reviewed, dictated and finalized at location . Impression: Prior left thyroidectomy. 4 mm cystic nodule in the right thyroid lobe, benign.
--- OUTSIDE RECORDS SUMMARY | 2024-12-13 12:14 | XMS_ITS | Clinical Summary ---
Author Organization [facility] Address [address] [facility] [place] [address] Care Team Providers Care Keg Raiser Name Role Phone Unavailable Primary Care Provider Unavailabl e Source Comments [facility] [employer],non-owned Affiliates and Associated Physician Practices is amultiple site organization consisting of ambulatory clinics and hospital sitesin [place], [place], [place] and [place]. This disclosure is being madepursuant to the Care Everywhere program and may not contain all information available regarding this patient. 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
--- OUTSIDE RECORDS SUMMARY | 2024-12-13 12:14 | XMS_ITS | Clinical Summary ---
Author Organization [facility] Medical [facility] 2 Address [address] [facility] [place] [address] Care Team Providers Care Ambulatory Care Nurse Name Role Phone Carrie Bernstein MD Primary Care Provider [phone] Allergies No known active allergies Medications aspirin [...] Diagnosed Date Coronary artery disease invo lving [place] coronary artery of [place] heart without angina pectoris 01/28/2024 Allergic conjunctivitis of both eyes 06/26/2020 Assessment & Plan (12/30/2022 3:59 PM CDT): Resolved w/o symptoms Assessment & Plan (12/17/2021 10:19 AM CDT): No itching sensation, no seasonal association w/ discomfort, not currently using allergy eye gtts Resolved Assessment & Plan (06/26/2020 8:28 AM KILN WORKER): Restasis OU bid prn 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 Very mild SPEE OD with P1 [...] CTM Assessment & Plan (06/26/2020 8:27 AM KILN WORKER): ADL being met 20/20 OU Observe RTC 1 yr Assessment & Plan (06/12/2019 12:03 PM KILN WORKER): stable Assessment & Plan (06/20/2018 3:23 PM KILN WORKER): Not VS. Monitor. 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 Encounters Date Type Department Care Team Description 12/03/2024 Telephone [facility] Cardiology [address] [facility] Office Building [address] [place] [address] Vadim Bernstein MD Test Results 11/28/2024 Results Follow-Up [facility] Cardiology [address] [facility] Building [address] [place] [address] Yazmin Retana RMA SCAN - LABS 11/16/2024 Orders Only [facility] Cailin Snell RN 09/25/2024 Telephone [facility] Cardiology [address] [facility] 8th [place] [address] [place] [address] Vadim Bernstein MD from Last [...] on file Legal Sex Male 12:15 AM KILN WORKER Gender Identity Not on file Sexual Orientation Not on file Occupation Industry Job Start Date Job End Date Not on file Not on file Not on file Not on file Obstetrics History Last Filed Vital Signs Vital Sign Reading Time Taken Comments Blood Pressure 124/78 07/20/2024 10:22 AM KILN WORKER Pulse 87 07/20/2024 10:22 AM KILN WORKER Temperature - - Respiratory Rate 18 07/20/2024 10:22 AM KILN WORKER Oxygen Saturation 98% 07/20/2024 10:22 AM KILN WORKER Inhaled Oxygen Concentration - - Weight 88.5 kg (195 lb) 07/20/2024 10:22 AM KILN WORKER Height 180.3 cm (5' 11) 07/20/2024 10:22 AM KILN WORKER Body Mass Index 27.2 07/20/2024 10:22 AM KILN WORKER Plan of Treatment Health Maintenance Due Date [...] Result from Last 3 Months Insurance MEDICARE [facility] [place] [address] [facility] MEDICARE SUPPLEMENT INSURANCE JANIYA NATHAN [id number] MEDICARE Care Teams Ambulatory Care Nurse Relationship Specialty Start Date End Date Carrie Bernstein MD [address] [place] [address] PCP - General 04/03/12
--- OUTSIDE RECORDS SUMMARY | 2024-12-13 12:14 | XMS_ITS | Encounter Summary ---
Author Organization [facility] Address [address] [place] [address] Phone Care Team Providers Care Mud Mixer Helper Name Role Phone Carrie Bernstein MD Primary Care Provider + [phone] Encounter Details Date Type Department Care Team (Latest Contact Info) Description 05/02/2023 Orders Only [facility] Cailin Snell, ZULEIMA [address] [facility] [address] [place] [address] Social History Tobacco Use Types Packs/Day Years Used Date Smoking Tobacco: Never Smokeless Tobacco: Never Alcohol Use Standard Drinks/Week Comments Yes 7 (1 standard drink = 0.6 oz pur e alcohol) Sex and Gender Information Value Date Recorded Sex Assigned at Not on file Legal Sex Male 12:15 AM 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
--- OUTSIDE RECORDS SUMMARY | 2024-12-13 12:14 | XMS_ITS | Clinical Summary ---
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 Not on file Not on f ile Not on file Not on file Not on file Not on file Not on file Last Filed Vital Signs Vital Sign Reading Time Taken Comments Blood Pressure 102/64 05/19/2023 2:37 PM VENEER PATCHER Pulse 80 05/19/2023 2:37 PM VENEER PATCHER Temperature - - Respiratory Rate 18 05/19/2023 2:37 PM VENEER PATCHER Oxygen Saturation - - Inhaled Oxygen Concentration - - Weight 87.7 kg (193 lb 6.4 oz) 05/19/2023 2:37 P M VENEER PATCHER Height 177.8 cm (5' 10) 05/19/2023 2:37 PM VENEER PATCHER Body Mass Index 27.75 05/19/2023 2:37 PM VENEER PATCHER Plan of Treatment Health Maintenance Due Date [...] Relevant to Health Maintenance Insurance MEDICARE MEDICARE Member Subscriber Plan / Payer (Ef fective 2016-Present) Name:Dilshad Stewart Relation to Subscriber:Self Name:Dilshad Stewart Payer ID:Not on file Group ID:Not on file Type:[employer] Address: [address] [address] [facility] Member Subscriber Plan / Payer (Ef fective for All Dates) Name:Dilshad Stewart Relation to Subscriber:Self Name:Dilshad Stewart Payer ID:Not on file Group ID:Not on file Type:[employer] Address: [address] [place] [id number] Care Teams Maintenance Repairman Relationship Specialty Start Date End Date Carrie Bernstein MD [address] [place] [address] PCP - General INTERNAL MEDICINE 07/20/16 Byron Heard MD [address] [place] [address] CARDIOVASCULAR DISEASE 07/20/16 Tiffanie Mitchell, ANP- [address] [facility] [address] [place] [address] NURSE PRACTITIONER 07/20/16 Marcos [place] MD [address] [address] ORTHOPAEDIC SURGERY 03/22/19 Steve Dimas MD [address] [address] INTERVENTIONAL CARDIOLOGY 05/19/23
--- OUTSIDE RECORDS SUMMARY | 2024-12-13 12:14 | XMS_ITS | Referral Summary ---
Author Organization [facility] Medical [facility] Building 2 Address [address] [facility] [place] [address] Care Team Providers Care Aviation Maintenance Technician Name Role Phone Carrie Bernstein MD Primary Care Provider [phone] Encounters Date Type Department Care Team Description 12/03/2024 Telephone [facility] Office Building [address] [place] [address] Vadim Bernstein MD Test Results 11/28/2024 Results Follow-Up [place] [address] [facility] Office Building [address] [place] [address] Yazmin Retana RMA SCAN - LABS 11/16/[address] [facility] CARDIOLOG[facility] Cailin Snell, ZULEIMA 09/25/2024 Telephone [facility] [address] [facility] Advanced Medicine 8th [place] [address] [place] [address] Vadim Bernstein MD from Last [...] Diagnosed Date Coronary artery disease invo lving [place] coronary artery of [place] heart without angina pectoris 01/28/2024 Allergic conjunctivitis of both eyes 06/26/2020 Assessment & Plan (12/30/2022 3:59 PM CDT): Resolved w/o symptoms Assessment & Plan (12/17/2021 10:19 AM CDT): No itching sensation, no seasonal association w/ discomfort, not currently using allergy eye gtts Resolved Assessment & Plan (06/26/2020 8:28 AM SUPERVISOR COMMISSARY PRODUCTION): Restasis OU bid prn 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 Very mild SPEE OD with P1 [...] CTM Assessment & Plan (06/26/2020 8:27 AM SUPERVISOR COMMISSARY PRODUCTION): ADL being met 20/20 OU Observe RTC 1 yr Assessment & Plan (06/12/2019 12:03 PM SUPERVISOR COMMISSARY PRODUCTION): stable Assessment & Plan (06/20/2018 3:23 PM SUPERVISOR COMMISSARY PRODUCTION): Not VS. Monitor. Tear film insufficiency 07/07/2010 [...] on file Legal Sex Male 12:15 AM SUPERVISOR COMMISSARY PRODUCTION Gender Identity Not on file Sexual Orientation Not on file Occupation Industry Job Start Date Job End Date Not on file Not on file Not on file Not on file Last Filed Vital Signs Vital Sign Reading Time Taken Comments Blood Pressure 124/78 07/20/2024 10:22 AM SUPERVISOR COMMISSARY PRODUCTION Pulse 87 07/20/2024 10:22 AM SUPERVISOR COMMISSARY PRODUCTION Temperature - - Respiratory Rate 18 07/20/2024 10:22 AM SUPERVISOR COMMISSARY PRODUCTION Oxygen Saturation 98% 07/20/2024 10:22 AM SUPERVISOR COMMISSARY PRODUCTION Inhaled Oxygen Concentration - - Weight 88.5 kg (195 lb) 07/20/2024 10:22 AM SUPERVISOR COMMISSARY PRODUCTION Height 180.3 cm (5' 11) 07/20/2024 10:22 AM SUPERVISOR COMMISSARY PRODUCTION Body Mass Index 27.2 07/20/2024 10:22 AM SUPERVISOR COMMISSARY PRODUCTION Plan of Treatment Not on file Procedures Procedure Name Priority Date/Time Associated Diagnosis Comments SCAN - LABS 11/16/2024 from Last 3 Months Results * SCAN - LABS (11/16/2024) Cailin Snell RN Final Result from Last 3 Months Insurance MEDICARE [facility] MEDICARE SUPPLEMENT INSURANCE MEDICARE Care Teams Aviation Maintenance Technician Relationship Specialty Start Date End Date Carrie Bernstein MD [address] [place] [address] PCP - General 04/03/12
--- OUTSIDE RECORDS SUMMARY | 2024-12-13 12:14 | XMS_ITS | Encounter Summary ---
Author Organization [facility] Address [address] [place] [address] Phone Care Team Providers Care Public Safety Police Name Role Phone Carrie Bernstein MD Primary Care Provider + [phone] Encounter Details Date Type Department Care Team (Latest Contact Info) Description 05/12/2022 Orders Only [facility] Cailin Snell, ZULEIMA [address] [facility] [address] [place] [address] Social History Tobacco Use Types Packs/Day Years Used Date Smoking Tobacco: Never Smokeless Tobacco: Never Alcohol Use Standard Drinks/Week Comments Yes 7 (1 standard drink = 0.6 oz pur e alcohol) Sex and Gender Information Value Date Recorded Sex Assigned at Not on file Legal Sex Male 12:15 AM CHARACTER IMPERSONATOR Gender Identity Not on file Sexual Orientation [...] on filedocumented in this encounter Care Teams Public Safety Police Relationship Specialty Start Date End Date Carrie Bernstein MD [address] [place] [address] PCP - General 04/03/12 documented as of this encounter
--- OUTSIDE RECORDS SUMMARY | 2024-12-13 12:14 | XMS_ITS | Encounter Summary ---
Author Organization [facility] Address [address] [place] [address] Phone Care Team Providers Care Physical Education Department Chair Name Role Phone Carrie Bernstein MD Primary Care Provider + [phone] Encounter Details Date Type Department Care Team (Latest Contact Info) Description 01/30/2018 Orders Only [facility] Cailin Snell RN [address] [facility] [address] [place] [address] Social History Tobacco Use Types Packs/Day Years Used Date Smoking Tobacco: Never Alcohol Use Standard Drinks/Week Comments Yes 0 (1 standard drink = 0.6 oz pur e alcohol) Sex and Gender Information Value Date Recorded Sex Assigned at Not on file Legal Sex Male 12:15 AM 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
--- OUTSIDE RECORDS SUMMARY | 2024-12-13 12:14 | XMS_ITS | Encounter Summary ---
Author Organization [facility] Address [address] [place] [address] Phone Care Team Providers Care Apparel Sales Leader Name Role Phone Carrie Bernstein MD Primary Care Provider [phone] Encounter Details Date Type Department Care Team (Late st Contact Info) Description 11/28/2024 Results Follow-Up [facility] Cardiology [address] [facility] Medical Office Building [address] [place] [address] Yazmin Retana RMA SCAN - LABS Social History Tobacco Use Types Packs/Day Years Used Date Smoking Tobacco: Never Smokeless Tobacco: Never Alcohol Use Standard Drinks/Week Comments Yes 7 (1 standard drink = 0.6 oz pur e alcohol) Sex and Gender Information Value Date Recorded Sex Assigned at Not on file Legal Sex Male 12:15 AM CHILD DEVELOPMENT INSTRUCTOR Gender Identity Not on file Sexual Orientation Not on file Occupation Industry Job Start Date Job End Date Not on file Not on file Not on file Not on file documented as of this encounter Plan of Treatment Not on file documented as of this encounter Visit Diagnoses Not on filedocumented in this encounter Care Teams Apparel Sales Leader Relationship Specialty Start Date End Date Carrie Bernstein MD [address] [place] [address] PCP - General 04/03/12 documented as of this encounter
--- OUTSIDE RECORDS SUMMARY | 2024-12-13 12:14 | XMS_ITS | Encounter Summary ---
Author Organization [facility] Health Address [address] [place] [address] Care Team Providers Care Food General Manager Name Role Phone Unavailable Primary Care Provider Unavailabl e Prior Encounters Date Type Department Care Team Description 06/13/2023 1:30 PM [facility] Office Visit [facility] [address], [address] [place] [address] Donald Underwood, ESTEFANY Last Filed Vital Signs Vital Sign Reading Time Taken Comments Blood Pressure 176/68 06/13/2023 2:17 PM [facility] Pulse 59 06/13/2023 2:17 PM [facility] Temperature 36.6 C (97.8 F) 06/13/2023 2:17 PM [facility] Respiratory Rate - - Oxygen Saturation - - Inhaled Oxygen Concentration - - Weight - - Height - - Body Mass Index - - Plan of Treatment Not on file Procedures Procedure Name Priority Date/Time Associated Diagnosis Comments 31 RECEMENT CROWN Routine 06/13/2023 1:3 0 PM [facility]ST SINGLE X-RAY Routine 06/13/2023 1:30 PM MST BITEWING - SINGLE RADIOGRAPHIC IMAGE Routine 06/13/2023 1:30 PM [facility] LIMITED ORAL EVALUATION - PROBLEM FOCUSED Routine 06/13/2023 1:30 PM [facility] DENTAL PLAN ENROLL 1 Routine 06/13/2023 1:30 PM [facility] Visit Diagnoses Not on file
--- OUTSIDE RECORDS SUMMARY | 2024-12-13 12:14 | XMS_ITS | Encounter Summary ---
Author Organization [facility] Address [address] [place] [address] Phone Care Team Providers Care Wireless Consultant Name Role Phone Carrie Bernstein MD Primary Care Provider + [phone] Encounter Details Date Type Department Care Team (Latest Contact Info) Description 07/21/2023 Orders Only [facility] Cailin Snell, ZULEIMA [address] [facility] [address] [place] [address] Social History Tobacco Use Types Packs/Day Years Used Date Smoking Tobacco: Never Smokeless Tobacco: Never Alcohol Use Standard Drinks/Week Comments Yes 7 (1 standard drink = 0.6 oz pur e alcohol) Sex and Gender Information Value Date Recorded Sex Assigned at Not on file Legal Sex Male 12:15 AM JOINERY MACHINIST Gender Identity Not on file Sexual Orientation [...] on filedocumented in this encounter Care Teams Wireless Consultant Relationship Specialty Start Date End Date Carrie Bernstein MD [address] [place] [address] PCP - General 04/03/12 documented as of this encounter
--- OUTSIDE RECORDS SUMMARY | 2024-12-13 12:14 | XMS_ITS | Clinical Summary ---
Author Organization [facility] Address [address] [place] [address] Care Team Providers Care Cement Block Maker Name Role Phone Unavailable Primary Care Provider [...]
--- OUTSIDE RECORDS SUMMARY | 2024-12-13 12:14 | XMS_ITS | Encounter Summary ---
Author Organization [facility] Address [address] [place] [address] Phone Care Team Providers Care Site Inspector Name Role Phone Carrie Bernstein MD Primary Care Provider + [phone] Encounter Details Date Type Department Care Team (Latest Contact Info) Description 06/07/2006 Orders Only [facility] Cailin Snell RN [address] [facility] [address] [place] [address] Social History Tobacco Use Types Packs/Day Years Used Date Smoking Tobacco: Never Assessed Sex and Gender Information Value Date Recorded Sex Assigned at Not on file Legal Sex Male 12:15 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
--- OUTSIDE RECORDS SUMMARY | 2024-12-13 12:14 | XMS_ITS | Encounter Summary ---
Author Organization [facility] Address [address] [place] [address] Phone Care Team Providers Care Front End Developer Designer Name Role Phone Carrie Bernstein MD Primary Care Provider + [phone] Encounter Details Date Type Department Care Team (Latest Contact Info) Description 12/05/2012 Orders Only [facility] Cailin Snell RN [address] [facility] [address] [place] [address] Social History Tobacco Use Types Packs/Day Years Used Date Smoking Tobacco: Never Assessed Alcohol Use Standard Drinks/Week Comments Yes 0 (1 standard drink = 0.6 oz pur e alcohol) Sex and Gender Information Value Date Recorded Sex Assigned at Not on file Legal Sex Male 12:15 AM TELECOMMUNICATIONS FACILITY EXAMINER Gender Identity Not on file Sexual Orientation [...] on filedocumented in this encounter Care Teams Front End Developer Designer Relationship Specialty Start Date End Date Carrie Bernstein MD [address] [place] [id number] PCP - General 04/03/12 documented as of this encounter
== END 2024-12-13 12:12 | disposition home or self-care (01) ==
PROVIDERS: PCP Internal Medicine; Visit Provider Internal Medicine
DX: E03.9 Hypothyroidism, unspecified (principal); I65.23 Occlusion and stenosis of bilateral carotid arteries
CPT/HCPCS: 76536; 93880

== ENCOUNTER 2024-12-27 07:15 | Outpatient (CLI) | payer MEDICARE, OTHER, SELFPAY ==
--- NOTE | ~2024-12-27 | CT_ITS ---
EXAMINATION: CT abdomen pelvis w con DATE: 12/27/2024 08:12 INDICATION: Right upper quadrant abdominal pain. Epigastric pain. TECHNIQUE: Computed tomography (CT) of the abdomen and pelvis was performed with 100 mL Omnipaque-350 intravenous contrast. Automated exposure control and iterative reconstruction technique were employe d. The dose-length product was 549.76 mGy-cm. COMPARISON: None FINDINGS: Mild discoid atelectasis at the lingula. Mild dependent atelectasis in bilateral lower lobes. Heart s ize is normal. Minimal gas within the right atrium and ventricle likely related to venous catheter pl acement. Aortic valve calcification. Small sliding-type hiatal hernia. Liver, gallbladder, pancreas a nd bilateral adrenal glands are normal. Numerous splenic calcific lesions consistent with old granulo matous disease. Bilateral kidneys are normal with symmetric enhancement. There is calcified atheroscl erosis of the normal caliber aorta and many of the other arteries. Moderate to large amount of stool scattered throughout the colon which can be seen with constipation. The appendix is not visualized. N o pericecal inflammatory change to suggest acute appendicitis. Small amount of scattered pseudo fece s in the small bowel which could be seen with delayed transit but without rudolph dilation to suggest a significant bowel obstruction. The region of the bladder and prostate are largely by dense metallic streak artifact from bilateral total hip arthroplasties. Small bilateral fat-containing inguinal brian ias, small on the left and moderate-sized on the right. No free intraperitoneal gas or fluid. No path ologically enlarged abdominal or pelvic lymphadenopathy. Moderate lumbar and mild lower thoracic spon dylosis. IMPRESSION: 1. Moderate to large amount of stool throughout the colon which can be seen with constipation. Additi onally there is small amount scattered pseudofeces within the small bowel suggesting delayed transit possibly related to ileus but without rudolph dilation to suggest a significant obstruction. 2. Small sliding-type hiatal hernia. 3. Bilateral fat-containing inguinal hernias, small on the left and moderate-sized on the right. Reviewed, dictated and finalized at location A. IMPRESSION: 1. Moderate to large amount of stool throughout the colon which can be seen wit h constipation. Additionally there is small amount scattered pseudofeces within the small bowel suggesting delayed transit possibly related to ileus but witho ut rudolph dilation to suggest a significant obstruction. 2. Small sliding-type hiatal hernia. 3. Bilateral fat-containing inguinal hernias, small on the left and moderate-si zed on the right.
--- OUTSIDE RECORDS SUMMARY | 2024-12-27 07:20 | XMS_ITS | Encounter Summary ---
Author Organization [facility] Address [address] [place] [address] Phone Care Team Providers Care Face Worker Name Role Phone Carrie Bernstein MD Primary Care Provider + [phone] Encounter Details Date Type Department Care Team (Latest Contact Info) Description 12/05/2012 Orders Only [facility] Cailin Snell RN [address] [facility] [address] [place] [address] Social History Tobacco Use Types Packs/Day Years Used Date Smoking Tobacco: Never Assessed Alcohol Use Standard Drinks/Week Comments Yes 0 (1 standard drink = 0.6 oz pur e alcohol) Sex and Gender Information Value Date Recorded Sex Assigned at Not on file Legal Sex Male 12:15 AM RAW MATERIAL HANDLER Gender Identity Not on file Sexual Orientation [...] on filedocumented in this encounter Care Teams Face Worker Relationship Specialty Start Date End Date Carrie Bernstein MD [address] [place] [id number] PCP - General 04/03/12 documented as of this encounter
--- OUTSIDE RECORDS SUMMARY | 2024-12-27 07:20 | XMS_ITS | Clinical Summary ---
Author Organization [facility] Medical [facility] Address [address] [facility] [place] [address] Care Team Providers Care Child And Adolescent Psychologist Name Role Phone Carrie Bernstein MD Primary Care Provider [phone] Allergies No known active allergies Medications aspirin [...] Diagnosed Date Coronary artery disease invo lving [place] coronary artery of [place] heart without angina pectoris 01/28/2024 Allergic conjunctivitis of both eyes 06/26/2020 Assessment & Plan (12/30/2022 3:59 PM CDT): Resolved w/o symptoms Assessment & Plan (12/17/2021 10:19 AM CDT): No itching sensation, no seasonal association w/ discomfort, not currently using allergy eye gtts Resolved Assessment & Plan (06/26/2020 8:28 AM TEMPLATE FITTER): Restasis OU bid prn 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 Very mild SPEE OD with P1 [...] CTM Assessment & Plan (06/26/2020 8:27 AM TEMPLATE FITTER): ADL being met 20/20 OU Observe RTC 1 yr Assessment & Plan (06/12/2019 12:03 PM TEMPLATE FITTER): stable Assessment & Plan (06/20/2018 3:23 PM TEMPLATE FITTER): Not VS. Monitor. 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 Encounters Date Type Department Care Team Description 12/03/2024 Telephone [facility] Cardiology [facility] Building [address] [place] [id number] Vadim Bernstein MD Test Results 11/28/2024 Results Follow-Up [facility] Cardiology [address] [place] [address] [address] [place] [phone] Yazmin Retana RMA SCAN - LABS 11/16/2024 Orders Only [facility] Cailin Snell RN from Last 3 Months Surgical History Surgery [...] on file Legal Sex Male 12:15 AM TEMPLATE FITTER Gender Identity Not on file Sexual Orientation Not on file Occupation Industry Job Start Date Job End Date Not on file Not on file Not on file Not on file Obstetrics History Last Filed Vital Signs Vital Sign Reading Time Taken Comments Blood Pressure 124/78 07/20/2024 10:22 AM TEMPLATE FITTER Pulse 87 07/20/2024 10:22 AM TEMPLATE FITTER Temperature - - Respiratory Rate 18 07/20/2024 10:22 AM TEMPLATE FITTER Oxygen Saturation 98% 07/20/2024 10:22 AM TEMPLATE FITTER Inhaled Oxygen Concentration - - Weight 88.5 kg (195 lb) 07/20/2024 10:22 AM TEMPLATE FITTER Height 180.3 cm (5' 11) 07/20/2024 10:22 AM TEMPLATE FITTER Body Mass Index 27.2 07/20/2024 10:22 AM TEMPLATE FITTER Plan of Treatment Health Maintenance Due Date [...] Result from Last 3 Months Insurance MEDICARE [facility] [place] [address] [facility] MEDICARE SUPPLEMENT INSURANCE MEDICARE Care Teams Child And Adolescent Psychologist Relationship Specialty Start Date End Date Carrie Bernstein MD [address] [place] [address] PCP - General 04/03/12
--- OUTSIDE RECORDS SUMMARY | 2024-12-27 07:20 | XMS_ITS | Clinical Summary ---
Author Organization [facility] Address [address] [place] [address] Care Team Providers Care Travel Registered Nurse Icu Name Role Phone Unavailable Primary Care Provider [...]
--- OUTSIDE RECORDS SUMMARY | 2024-12-27 07:20 | XMS_ITS | Encounter Summary ---
Author Organization [facility] Address [address] [place] [address] Phone Care Team Providers Care Certified Alcohol Drug Counselor Name Role Phone Carrie Bernstein MD Primary Care Provider + [phone] Encounter Details Date Type Department Care Team (Latest Contact Info) Description 05/12/2022 Orders Only [facility] Cailin Snell, ZULEIMA [address] [facility] [address] [place] [address] Social History Tobacco Use Types Packs/Day Years Used Date Smoking Tobacco: Never Smokeless Tobacco: Never Alcohol Use Standard Drinks/Week Comments Yes 7 (1 standard drink = 0.6 oz pur e alcohol) Sex and Gender Information Value Date Recorded Sex Assigned at Not on file Legal Sex Male 12:15 AM BROKE HANDLER Gender Identity Not on file Sexual [...] on filedocumented in this encounter Care Teams Certified Alcohol Drug Counselor Relationship Specialty Start Date End Date Carrie Bernstein MD [address] [place] [address] PCP - General 04/03/12 documented as of this encounter
--- OUTSIDE RECORDS SUMMARY | 2024-12-27 07:20 | XMS_ITS | Clinical Summary ---
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 Not on file Not on f ile Not on file Not on file Not on file Not on file Not on file Last Filed Vital Signs Vital Sign Reading Time Taken Comments Blood Pressure 102/64 05/19/2023 2:37 PM REGRIND MILL OPERATOR Pulse 80 05/19/2023 2:37 PM REGRIND MILL OPERATOR Temperature - - Respiratory Rate 18 05/19/2023 2:37 PM REGRIND MILL OPERATOR Oxygen Saturation - - Inhaled Oxygen Concentration - - Weight 87.7 kg (193 lb 6.4 oz) 05/19/2023 2:37 P M REGRIND MILL OPERATOR Height 177.8 cm (5' 10) 05/19/2023 2:37 PM REGRIND MILL OPERATOR Body Mass Index 27.75 05/19/2023 2:37 PM REGRIND MILL OPERATOR Plan of Treatment Health Maintenance Due Date [...] Relevant to Health Maintenance Insurance MEDICARE MEDICARE [facility] Care Teams Prop And Effects Designer Relationship Specialty Start Date End Date Carrie Bernstein MD [address] [place] [address] PCP - General INTERNAL MEDICINE 07/20/16 Byron Heard MD [address] [place] [address] CARDIOVASCULAR DISEASE 07/20/16 Tiffanie Mitchell, ANP- [address] [facility] [address] [place] [address] NURSE PRACTITIONER 07/20/16 Marcos Lee MD [address] [address] ORTHOPAEDIC SURGERY 03/22/19 Steve Dimas MD [address] [address] INTERVENTIONAL CARDIOLOGY 05/19/23
--- OUTSIDE RECORDS SUMMARY | 2024-12-27 07:20 | XMS_ITS | Encounter Summary ---
Author Organization [facility] Address [address] [place] [address] Phone Care Team Providers Care Scientific Programmer Analyst Name Role Phone Carrie Bernstein MD Primary Care Provider + [phone] Encounter Details Date Type Department Care Team (Latest Contact Info) Description 06/07/2006 Orders Only [facility] Cailin Snell RN [address] [facility] [address] [place] [address] Social History Tobacco Use Types Packs/Day Years Used Date Smoking Tobacco: Never Assessed Sex and Gender Information Value Date Recorded Sex Assigned at Not on file Legal Sex Male 12:15 AM CAR PRE COOLER Gender Identity Not on file Sexual Orientation [...] on filedocumented in this encounter Care Teams Scientific Programmer Analyst Relationship Specialty Start Date End Date Carrie Bernstein MD [address] [place], [place] [id number] PCP - General 04/03/12 documented as of this encounter
--- OUTSIDE RECORDS SUMMARY | 2024-12-27 07:20 | XMS_ITS | Referral Summary ---
Author Organization [facility] Medical [facility] Building 2 Address [address] [facility] [place] [address] Care Team Providers Care Head Boys Tennis Coach Name Role Phone Carrie Bernstein MD Primary Care Provider [phone] Encounters Date Type Department Care Team Description 12/03/2024 Telephone [facility] Cardiology [address] [place] [address] [address] [place] [address] Vadim Bernstein MD Test Results 11/28/2024 Results Follow-Up [address] Office Building [address] [place] [address] Yazmin Retana RMA SCAN - LABS 11/16/2024 Orders Only [facility] CARDIOLOGY Cailin Snell RN from Last 3 Months Allergies No known [...] for chest pain 25 tablet 3 07/20/2024 Active carvediloL (COREG) 3.125 mg tablet Take 1 tablet (3.125 mg total) by mouth 2 (two) times a day with meals 180 tablet 3 07/20/2024 Active evolocumab (Repatha SureClick) 140 mg/mL pen injector Inject 1 mL (140 mg total) under the skin every 14 (fourteen) days 6 mL 3 08/28/2024 Active Active Problems Problem Noted Date Diagnosed Date Coronary artery disease invo lving [place] coronary artery of [place] heart without angina pectoris 01/28/2024 Allergic conjunctivitis of both eyes 06/26/2020 Assessment & Plan (12/30/2022 3:59 PM CDT): Resolved w/o symptoms Assessment & Plan (12/17/2021 10:19 AM CDT): No itching sensation, no seasonal association w/ discomfort, not currently using allergy eye gtts Resolved Assessment & Plan (06/26/2020 8:28 AM OUTSOLE CUTTER MACHINE): Restasis OU bid prn 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 Very mild SPEE OD with P1 [...] CTM Assessment & Plan (06/26/2020 8:27 AM OUTSOLE CUTTER MACHINE): ADL being met 20/20 OU Observe RTC 1 yr Assessment & Plan (06/12/2019 12:03 PM OUTSOLE CUTTER MACHINE): stable Assessment & Plan (06/20/2018 3:23 PM OUTSOLE CUTTER MACHINE): Not VS. Monitor. Tear film insufficiency 07/07/2010 [...] on file Legal Sex Male 12:15 AM OUTSOLE CUTTER MACHINE Gender Identity Not on file Sexual Orientation Not on file Occupation Industry Job Start Date Job End Date Not on file Not on file Not on file Not on file Last Filed Vital Signs Vital Sign Reading Time Taken Comments Blood Pressure 124/78 07/20/2024 10:22 AM OUTSOLE CUTTER MACHINE Pulse 87 07/20/2024 10:22 AM OUTSOLE CUTTER MACHINE Temperature - - Respiratory Rate 18 07/20/2024 10:22 AM OUTSOLE CUTTER MACHINE Oxygen Saturation 98% 07/20/2024 10:22 AM OUTSOLE CUTTER MACHINE Inhaled Oxygen Concentration - - Weight 88.5 kg (195 lb) 07/20/2024 10:22 AM OUTSOLE CUTTER MACHINE Height 180.3 cm (5' 11) 07/20/2024 10:22 AM OUTSOLE CUTTER MACHINE Body Mass Index 27.2 07/20/2024 10:22 AM OUTSOLE CUTTER MACHINE Plan of Treatment Not on file Procedures Procedure Name Priority Date/Time Associated Diagnosis Comments SCAN - LABS 11/16/2024 from Last 3 Months Results * SCAN - LABS (11/16/2024) Cailin Snell RN Final Result from Last 3 Months Insurance MEDICARE [facility] MEDICARE SUPPLEMENT [place] [address] Care Teams Head Boys Tennis Coach Relationship Specialty Start Date End Date Carrie Bernstein MD [address] [place] [address] PCP - General 04/03/12
--- OUTSIDE RECORDS SUMMARY | 2024-12-27 07:20 | XMS_ITS | Encounter Summary ---
Author Organization [facility] Health Address [address] [place] [address] Care Team Providers Care Physician Liaison Name Role Phone Unavailable Primary Care Provider Unavailabl e Prior Encounters Date Type Department Care Team Description 06/13/2023 1:30 PM [facility] Office Visit [facility] [address], [address] [place] [address] Donald Underwood, ESTEFANY Last Filed Vital Signs Vital Sign Reading Time Taken Comments Blood Pressure 176/68 06/13/2023 2:17 PM [facility] Pulse 59 06/13/2023 2:17 PM [facility] Temperature 36.6 C (97.8 F) 06/13/2023 2:17 PM [facility] Respiratory Rate - - Oxygen Saturation - - Inhaled Oxygen Concentration - - Weight - - Height - - Body Mass Index - - Plan of Treatment Not on file Procedures Procedure Name Priority Date/Time Associated Diagnosis Comments 31 RECEMENT CROWN Routine 06/13/2023 1:3 0 PM MST SINGLE X-RAY Routine 06/13/2023 1:30 PM MST BITEWING - SINGLE RADIOGRAPHIC IMAGE Routine 06/13/2023 1:30 PM [facility] LIMITED ORAL EVALUATION - PROBLEM FOCUSED Routine 06/13/2023 1:30 PM [facility] DENTAL PLAN ENROLL 1 Routine 06/13/2023 1:30 PM [facility] Visit Diagnoses Not on file
--- OUTSIDE RECORDS SUMMARY | 2024-12-27 07:20 | XMS_ITS | Encounter Summary ---
Author Organization [facility] Address [address] [place] [address] Phone Care Team Providers Care Facilities Director Name Role Phone Carrie Bernstein MD Primary Care Provider + [phone] Encounter Details Date Type Department Care Team (Latest Contact Info) Description 05/02/2023 Orders Only [facility] Cailin Snell, ZULEIMA [address] [facility] [address] [place] [address] Social History Tobacco Use Types Packs/Day Years Used Date Smoking Tobacco: Never Smokeless Tobacco: Never Alcohol Use Standard Drinks/Week Comments Yes 7 (1 standard drink = 0.6 oz pur e alcohol) Sex and Gender Information Value Date Recorded Sex Assigned at Not on file Legal Sex Male 12:15 AM TRAIN BRAKE OPERATOR Gender Identity Not on file Sexual [...] on filedocumented in this encounter Care Teams Facilities Director Relationship Specialty Start Date End Date Carrie Bernstein MD [address] [place] [address] PCP - General 04/03/12 documented as of this encounter
--- OUTSIDE RECORDS SUMMARY | 2024-12-27 07:20 | XMS_ITS | Clinical Summary ---
Author Organization [facility] Address [address] [facility] [place] [address] Care Team Providers Care Affiliate Marketing Specialist Name Role Phone Unavailable Primary Care Provider Unavailabl e Source Comments [facility] Imperator,non-owned Affiliates and Associated Physician Practices is amultiple site organization consisting of ambulatory clinics and hospital sitesin [place], [place], [place] and [place]. This disclosure is being madepursuant to the Care Everywhere program and may not contain all information available regarding this patient. Last updated 18.[facility] Imperator Social History Tobacco Use Types Packs/Day Years Used Date Smoking Tobacco: Never Assessed Sex and Gender Information Value Date Recorded Sex Assigned at Not on file Legal Sex Male 12:37 PM BRAIDER SETTER Gender Identity Not on file Sexual Orientation [...] - 1-dose 75+ series) 2024 INFLUENZA VACCINE (#1) 2025 HEPATITIS B VACCINE Aged Out No [...]
--- OUTSIDE RECORDS SUMMARY | 2024-12-27 07:20 | XMS_ITS | Encounter Summary ---
Author Organization [facility] Address [address] [place] [address] Phone Care Team Providers Care Marine Drafter Name Role Phone Carrie Bernstein MD Primary Care Provider [phone] Encounter Details Date Type Department Care Team (Late st Contact Info) Description 11/28/2024 Results Follow-Up [facility] Cardiology [address] [facility] Medical Office Building [address] [place] [address] Yazmin Retana RMA SCAN - LABS Social History Tobacco Use Types Packs/Day Years Used Date Smoking Tobacco: Never Smokeless Tobacco: Never Alcohol Use Standard Drinks/Week Comments Yes 7 (1 standard drink = 0.6 oz pur e alcohol) Sex and Gender Information Value Date Recorded Sex Assigned at Not on file Legal Sex Male 12:15 AM ENTERTAINMENT & MEDIA CORRESPONDENT Gender Identity Not on file Sexual Orientation Not on file Occupation Industry Job Start Date Job End Date Not on file Not on file Not on file Not on file documented as of this encounter Plan of Treatment Not on file documented as of this encounter Visit Diagnoses Not on filedocumented in this encounter Care Teams Marine Drafter Relationship Specialty Start Date End Date Carrie Bernstein MD [address] [place] [address] PCP - General 04/03/12 documented as of this encounter
--- OUTSIDE RECORDS SUMMARY | 2024-12-27 07:20 | XMS_ITS | Encounter Summary ---
Author Organization [facility] Address [address] [place] [address] Phone Care Team Providers Care Residential Appliance Repair Technician Name Role Phone Carrie Bernstein MD Primary Care Provider + [phone] Encounter Details Date Type Department Care Team (Latest Contact Info) Description 07/21/2023 Orders Only [facility] Cailin Snell, ZULEIMA [address] [facility] [address] [place] [address] Social History Tobacco Use Types Packs/Day Years Used Date Smoking Tobacco: Never Smokeless Tobacco: Never Alcohol Use Standard Drinks/Week Comments Yes 7 (1 standard drink = 0.6 oz pur e alcohol) Sex and Gender Information Value Date Recorded Sex Assigned at Not on file Legal Sex Male 12:15 AM PUBLICATION DESIGNER Gender Identity Not on file Sexual Orientation [...] on filedocumented in this encounter Care Teams Residential Appliance Repair Technician Relationship Specialty Start Date End Date Carrie Bernstein MD [address] [place] [address] PCP - General 04/03/12 documented as of this encounter
--- OUTSIDE RECORDS SUMMARY | 2024-12-27 07:20 | XMS_ITS | Encounter Summary ---
Author Organization [facility] Address [address] [place] [address] Phone Care Team Providers Care Motorcycle Riding Instructor Name Role Phone Carrie Bernstein MD Primary Care Provider + [phone] Encounter Details Date Type Department Care Team (Latest Contact Info) Description 01/30/2018 Orders Only [facility] Cailin Snell RN [address] [facility] [address] [place] [address] Social History Tobacco Use Types Packs/Day Years Used Date Smoking Tobacco: Never Alcohol Use Standard Drinks/Week Comments Yes 0 (1 standard drink = 0.6 oz pur e alcohol) Sex and Gender Information Value Date Recorded Sex Assigned at Not on file Legal Sex Male 12:15 AM INFRASTRUCTURE PROJECT MANAGER Gender Identity Not on file Sexual Orientation [...] on filedocumented in this encounter Care Teams Motorcycle Riding Instructor Relationship Specialty Start Date End Date Carrie Bernstein MD [address] [place] [id number] PCP - General 04/03/12 documented as of this encounter
[2024-12-27 07:48] LABS: Estimated Glomerular Filt Rate > 60
== END 2024-12-27 07:16 | disposition home or self-care (01) ==
PROVIDERS: PCP Internal Medicine; Visit Provider Internal Medicine
DX: R10.11 Right upper quadrant pain (principal); R10.13 Epigastric pain; K44.9 Diaphragmatic hernia without obstruction or gangrene; K40.20 Bilateral inguinal hernia, without obstruction or gangrene, not specified as recurrent
CPT/HCPCS: 74177; Q9967

== ENCOUNTER 2025-03-19 00:31 | Day surgery (SDC) | payer MEDICARE, OTHER, SELFPAY ==
[2025-03-12 10:06] VITALS: BMI 26.1
--- OUTSIDE RECORDS SUMMARY | 2025-03-19 00:37 | XMS_ITS | Encounter Summary ---
Author Organization [facility] Address [address] [place] [address] Phone Care Team Providers Care Build And Release Manager Name Role Phone Carrie Bernstein MD Primary Care Provider + [phone] Encounter Details Date Type Department Care Team (Latest Contact Info) Description 06/07/2006 Orders Only [facility] Cailin Snell RN [address] [facility] [address] [place] [address] Social History Tobacco Use Types Packs/Day Years Used Date Smoking Tobacco: Never Assessed Sex and Gender Information Value Date Recorded Sex Assigned at Not on file Legal Sex Male 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
--- OUTSIDE RECORDS SUMMARY | 2025-03-19 00:37 | XMS_ITS | Clinical Summary ---
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 Not on file Not on f ile Not on file Not on file Not on file Not on file Not on file Last Filed Vital Signs Vital Sign Reading Time Taken Comments Blood Pressure 102/64 05/19/2023 2:37 PM INTERNAL CONTROL SPECIALIST Pulse 80 05/19/2023 2:37 PM INTERNAL CONTROL SPECIALIST Temperature - - Respiratory Rate 18 05/19/2023 2:37 PM INTERNAL CONTROL SPECIALIST Oxygen Saturation - - Inhaled Oxygen Concentration - - Weight 87.7 kg (193 lb 6.4 oz) 05/19/2023 2:37 P M INTERNAL CONTROL SPECIALIST Height 177.8 cm (5' 10) 05/19/2023 2:37 PM INTERNAL CONTROL SPECIALIST Body Mass Index 27.75 05/19/2023 2:37 PM INTERNAL CONTROL SPECIALIST Plan of Treatment Health Maintenance Due Date Last Done Comments ASCVD Statin 1950 Colorectal Cancer Screening Colonoscopy (10 Years) 1950 Hepatitis C 08/17/1967 DTaP, Tdap and Td Vaccines (1 - Tdap) 1968 Pneumococcal Vaccine: 50+ Years (1 of 2 - PCV) 1968 Zoster Vaccines (1 of 2) 08/17/1999 Annual Medicare Wellness Visit 2014 ASCVD LDL 07/21/2024 07/21/2023, 04/07, 12/23/2020, Additional history exists RSV Immunization or 60+ Years (1 - 1-dose 75+ series) 2024 COVID-19 Vaccine ( - 2023- season) 2025 Influenza Adult (#1) 2025 Meningococcal B Vaccine Aged Out No l [...] 45 TRIGLYCERIDES 108 LDL (CALCULATED) 134 07/21/2023 us Steve Dimas MD LABORATORY Final Result from Last 3 Months or Most Recently Relevant to Health [place] [id number] MEDICARE [facility] Care Teams Pin Drafting Machine Operator Relationship Specialty Start Date End Date Carrie Bernstein MD [address] [place] [address] PCP - General INTERNAL MEDICINE 07/20/16 Byron Heard MD [address] [place] [address] CARDIOVASCULAR DISEASE 07/20/16 Tiffanie Mitchell, ANP- [address] [facility] [address] [place] [id number] NURSE PRACTITIONER 07/20/16 Marcos Lee MD [address] [place] [address] ORTHOPAEDIC SURGERY 03/22/19 Steve Dimas MD [address] [place] [id number] INTERVENTIONAL CARDIOLOGY 05/19/23
--- OUTSIDE RECORDS SUMMARY | 2025-03-19 00:37 | XMS_ITS | Encounter Summary ---
Author Organization [facility] Address [address] [place] [address] Phone Care Team Providers Care Face Painter Name Role Phone Carrie Bernstein MD Primary Care Provider + [phone] Encounter Details Date Type Department Care Team (Latest Contact Info) Description 07/21/2023 Orders Only [facility] Cailin Snell, ZULEIMA [address] [facility] [address] [place] [address] Social History Tobacco Use Types Packs/Day Years Used Date Smoking Tobacco: Never Smokeless Tobacco: Never Alcohol Use Standard Drinks/Week Comments Yes 7 (1 standard drink = 0.6 oz pur e alcohol) Sex and Gender Information Value Date Recorded Sex Assigned at Not on file Legal Sex Male 12:15 AM LAW SECRETARY Gender Identity Not on file Sexual Orientation [...] filedocumented in this encounter Care Teams Face Painter Relationship Specialty Start Date End Date Carrie Bernstein MD [address] [place] [address] PCP - General 04/03/12 documented as of this encounter
--- OUTSIDE RECORDS SUMMARY | 2025-03-19 00:37 | XMS_ITS | Clinical Summary ---
Author Organization [facility] Address [address] [facility] [place] [address] Care Team Providers Care Senior Manufacturing Supervisor Name Role Phone Unavailable Primary Care Provider Unavailabl e Source Comments [facility] [employer],non-owned Affiliates and Associated Physician Practices is amultiple site organization consisting of ambulatory clinics and hospital sitesin [place], [place], [place] and [place]. This disclosure is being madepursuant to the Care Everywhere program and may not contain all information available regarding this patient. Last updated 18.[facility] [employer] Social History Tobacco Use Types Packs/Day Years Used Date Smoking Tobacco: Never Assessed Sex and Gender Information Value Date Recorded Sex Assigned at Not on file Legal Sex Male 12:37 PM SECTION LEADER SCREEN PRINTING Gender Identity Not on file Sexual Orientation [...] 08/17/1999 ZOSTER VACCINE (1 of 2) 08/17/1999 DEPRESSION SCREENING 06/06/2024 Respiratory Syncytial Virus (RSV) Vaccine Pt: or over 60 yrs (1 - 1-dose 75+ series) 2024 COVID-19 VACCINE ( - 2023-2 5 season) 2025 INFLUENZA VACCINE (#1) 2025 HEPATITIS B VACCINE [...]
--- OUTSIDE RECORDS SUMMARY | 2025-03-19 00:37 | XMS_ITS | Clinical Summary ---
Author Organization [facility] Address [address] [place] [address] Care Team Providers Care Bond Analyst Name Role Phone Unavailable Primary Care Provider [...]
--- OUTSIDE RECORDS SUMMARY | 2025-03-19 00:37 | XMS_ITS | Encounter Summary ---
Author Organization [facility] Address [address] [place] [address] Care Team Providers Care Front Clerk Name Role Phone Unavailable Primary Care Provider Unavailabl e Prior Encounters Date Type Department Care Team Description 06/13/2023 1:30 PM [facility] Office Visit [facility] [address] [place] [address] Donald Underwood, ESTEFANY Last Filed Vital Signs Vital Sign Reading Time Taken Comments Blood Pressure 176/68 06/13/2023 2:17 PM [facility] Pulse 59 06/13/2023 2:17 PM [facility] Temperature 36.6 C (97.8 F) 06/13/2023 2:17 PM [facility] Respiratory Rate - - Oxygen Saturation [...] SINGLE RADIOGRAPHIC IMAGE Routine 06/13/2023 1:30 PM [facility] LIMITED ORAL EVALUATION - PROBLEM FOCUSED Routine 06/13/2023 1:30 PM [facility] DENTAL PLAN ENROLL 1 Routine 06/13/2023 1:30 PM [facility] Visit Diagnoses Not on file
--- OUTSIDE RECORDS SUMMARY | 2025-03-19 00:37 | XMS_ITS | Encounter Summary ---
Author Organization [facility] Address [address] [place] [address] Phone Care Team Providers Care Real Estate Rental Agent Name Role Phone Carrie Bernstein MD Primary Care Provider + [phone] Encounter Details Date Type Department Care Team (Latest Contact Info) Description 01/30/2018 Orders Only [facility] Cailin Snell RN [address] [facility] [address] [place] [address] Social History Tobacco Use Types Packs/Day Years Used Date Smoking Tobacco: Never Alcohol Use Standard Drinks/Week Comments Yes 0 (1 standard drink = 0.6 oz pur e alcohol) Sex and Gender Information Value Date Recorded Sex Assigned at Not on file Legal Sex Male 12:15 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
--- OUTSIDE RECORDS SUMMARY | 2025-03-19 00:37 | XMS_ITS | Encounter Summary ---
Author Organization [facility] Address [address] [place] [address] Phone Care Team Providers Care Dielectric Testing Machine Operator Name Role Phone Carrie Bernstein MD Primary Care Provider + [phone] Encounter Details Date Type Department Care Team (Latest Contact Info) Description 05/02/2023 Orders Only [facility] Cailin Snell, ZULEIMA [address] [facility] [address] [place] [address] Social History Tobacco Use Types Packs/Day Years Used Date Smoking Tobacco: Never Smokeless Tobacco: Never Alcohol Use Standard Drinks/Week Comments Yes 7 (1 standard drink = 0.6 oz pur e alcohol) Sex and Gender Information Value Date Recorded Sex Assigned at Not on file Legal Sex Male 12:15 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
--- OUTSIDE RECORDS SUMMARY | 2025-03-19 00:37 | XMS_ITS | Encounter Summary ---
Author Organization [facility] Address [address] [place] [address] Phone Care Team Providers Care Rail Layer Name Role Phone Carrie Bernstein MD Primary Care Provider + [phone] Encounter Details Date Type Department Care Team (Latest Contact Info) Description 05/12/2022 Orders Only [facility] Cailin Snell, ZULEIMA [address] [facility] [address] [place] [address] Social History Tobacco Use Types Packs/Day Years Used Date Smoking Tobacco: Never Smokeless Tobacco: Never Alcohol Use Standard Drinks/Week Comments Yes 7 (1 standard drink = 0.6 oz pur e alcohol) Sex and Gender Information Value Date Recorded Sex Assigned at Not on file Legal Sex Male 12:15 AM STAFF RADIOLOGIST Gender Identity Not on file Sexual Orientation [...] on filedocumented in this encounter Care Teams Rail Layer Relationship Specialty Start Date End Date Carrie Bernstein MD [address] [place] [address] PCP - General 04/03/12 documented as of this encounter
--- OUTSIDE RECORDS SUMMARY | 2025-03-19 00:37 | XMS_ITS | Clinical Summary ---
Author Organization [facility] Medical [facility] Address [address] [facility] [place] [address] Care Team Providers Care Finance Intern Name Role Phone Carrie Bernstein MD Primary Care Provider [phone] Allergies No known active allergies Medications aspirin [...] Active Problems Problem Noted Date Diagnosed Date Lattice degeneration of both retinas 02/06/2025 Assessment & Plan (02/06/2025 10:30 AM CDT): Lattice both eyes (OU) with small superior HST self-healed with pigment Patient was educated on the signs/sx retinal detachment, including flashes, floaters, and/or curtain over the vision. Recommend patient RTC immediately with the onset of any of these symptoms. Combined forms of age-related cataract of both e yes 02/06/2025 Assessment & Plan (02/06/2025 10:30 AM CDT): Pt is asymptomatic. Defer cataract extraction (CE) until signs/sx indicate. Recommend UV eye protection. Release updated glasses Rx Myopia of both eyes 02/06/2025 Glaucoma suspect, right 02/06/2025 Assessment & Plan (02/06/2025 10:32 AM CDT): Tmax today (26) OD, wedge of superior thinnning on OCT right eye (OD), normal left eye (OS), No known Fhx. No TIDs or K spindle. 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 Very mild SPEE OD with [...] CTM Assessment & Plan (06/26/2020 8:27 AM SENIOR SOFTWARE QUALITY ENGINEER): ADL being met 20/20 OU Observe RTC 1 yr Assessment & Plan (06/12/2019 12:03 PM SENIOR SOFTWARE QUALITY ENGINEER): stable Assessment & Plan (06/20/2018 3:23 PM SENIOR SOFTWARE QUALITY ENGINEER): Not VS. Monitor. 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 Encounters Date Type Department Care Team Description 02/06/2025 9:30 AM CDT Office Visit [facility] [address] [facility] [address] [place] [address] Alycia Chopra, OD Glaucoma suspect, right (Primary Dx); Lattice degeneration of both retinas; Encounter for observation for other suspected diseases and conditions ruled out; Combined forms of age-related cataract of both eyes from Last 3 Months Surgical History Surgery [...] on file Legal Sex Male 12:15 AM SENIOR SOFTWARE QUALITY ENGINEER Gender Identity Not on file Sexual Orientation Not on file Occupation Industry Job Start Date Job End Date Not on file Not on file Not on file Not on file Obstetrics History Last Filed Vital Signs Vital Sign Reading Time Taken Comments Blood Pressure 124/78 07/20/2024 10:22 AM SENIOR SOFTWARE QUALITY ENGINEER Pulse 87 07/20/2024 10:22 AM SENIOR SOFTWARE QUALITY ENGINEER Temperature - - Respiratory Rate 18 07/20/2024 10:22 AM SENIOR SOFTWARE QUALITY ENGINEER Oxygen Saturation 98% 07/20/2024 10:22 AM SENIOR SOFTWARE QUALITY ENGINEER Inhaled Oxygen Concentration - - Weight 88.5 kg (195 lb) 07/20/2024 10:22 AM SENIOR SOFTWARE QUALITY ENGINEER Height 180.3 cm (5' 11) 07/20/2024 10:22 AM SENIOR SOFTWARE QUALITY ENGINEER Body Mass Index 27.2 07/20/2024 10:22 AM SENIOR SOFTWARE QUALITY ENGINEER Plan of Treatment Health Maintenance Due Date Last Done Comments Colon Cancer Screening-Colonoscopy 1950 Depression Screening 1950 Fall Risk Assessment 1950 Hepatitis C Screening 1950 Hepatitis B Screening 08/17/1967 Zoster Vaccine (1 of 2) 08/17/1999 Well Visit 65+ 2014 Covid-19 Vaccine (2024-2 6 season) 2025 05/25/2021, 10/19/2020, 09/26/2020 Influenza Vaccine (#1) 2025 3, 02/11/2021, 06/26/2015, Additional history exists DTaP/Tdap/Td Vaccine (2 - Td or Tdap) 09/26/2031 09/25/2021 Pneumococcal vaccine 65+ Completed 06/26/2015, 08/05 Procedures Procedure Name Priority Date/Time Associated Diagnosis Comments OCT, RETINA - OU - BOTH EYES Routine 02/06/2025 10:29 AM CDT Encounter for observation for other suspected diseases and conditions ruled out OCT, OPTIC NERVE - OU - BOTH EYES Routine 02/06/2025 10:28 AM CDT Glaucoma suspect, right from Last 3 Months Results * OCT, Retina - OU - Both Eyes (02/06/2025 10:29 AM CDT) Central Macular Thickness OS 303 mircometers CONTINUUM Central Macular Thickness OD 297 micrometers CONTINUUM Anatomical Region Laterality Modality Head Optical Coherenc e Tomography Narrative 02/06/2025 10:29 AM CDT Right Eye Quality was good. Scan locations included subfoveal. Progression has no prior data. Findings include normal observations. Macular thickness was 297 micrometers. Left Eye Quality was good. Scan locations included subfoveal. Progression has no prior data. Findings include normal observations. Macular thickness was 303 mircometers. Notes Normal contour both eyes (OU) Ganglion cell layer (GCL) normal thickness OU Alycia Chopra OD OPHTH TOMOGRAPHY Final Res ult * OCT, Optic Nerve - OU - Both Eyes (02/06/2025 10:28 AM CDT) RNFL OS 92 micrometers CONTINUUM RNFL OD 85 micrometers CONTINUUM Anatomical Region Laterality Modality Head Optical Coherenc e Tomography Narrative 02/06/2025 10:28 AM CDT Right Eye Reliability was good. Average RNFL thickness 85 micrometers. Left Eye Reliability was good. Average RNFL thickness 92 micrometers. Notes Right eye (OD): wedge of superior thinning Left eye (OS): normal Alycia Chopra OD OPHTH TOMOGRAPHY Final Res ult from Last 3 Months Insurance MEDICARE [facility] MEDICARE SUPPLEMENT INSURANCE MEDICARE Care Teams Finance Intern Relationship Specialty Start Date End Date Carrie Bernstein MD [address] [place] [address] PCP - General 04/03/12
[2025-03-19 08:29] VITALS: BP 149/73; PULSE 61; RESP 18; TEMP 36.3; O2SAT 98; BMI 25.2
--- NOTE | 2025-03-19 08:30 | WPDANESEPPF ---
Anes - Initial Pre Proc Eval Procedure: Operation Date: 03/19/25 09:30 Proposed Procedures p Screening Colonoscopy - Vijay Underwood DO s Esophagogastroduodenoscopy - Vijay Underwood DO Date/Time: 03/19/25 08:30 Surgeon: Vijay Underwood DO Pre Op Diagnosis: Screening for malignant neoplasm of colon; GERD,HH Patient Data Age: 74 Gender: M Height: 1.8 m Weight: 85 kg Allergies Allergy/AdvReac Type Severity Reaction Status Date / Time No Known Allergies Allergy Mild Verified 03/19/25 08:28 Home Medications ?Medication ?Instructions ?Recorded ?Confirmed ?Type aspirin 81 mg chewable tablet 81 mg PO DAILY 04/10/19 03/19/25 History carvedilol 3.125 mg tablet 3.125 mg PO DAILY 04/10/19 03/19/25 History levothyroxine 88 mcg tablet 88 mcg PO DAILY 04/10/19 03/19/25 History naproxen sodium 220 mg capsule 220 mg PO DAILY 04/10/19 03/12/25 History (Aleve) tamsulosin 0.4 mg capsule 0.4 mg PO DAILY 04/10/19 03/19/25 History oxycodone-acetaminophen 5 mg-325 1 - 2 tablet PO Q4H PRN pain #30 05/02/19 03/12/25 Rx mg tablet tabs evolocumab 140 mg/mL subcutaneous 140 mg subcut [id number] 03/12/25 03/12/25 History pen injector (Tal Milton) Patient hx anesthesia problems: none Family hx anesthesia problems: none Results Review: All pre-operative results and documents have been reviewed as part of the pre-operative evaluation. [facility] Past Medical History Medical History BPH (benign prostatic hyperplasia) Degenerative arthritis of right knee Diastasis recti GERD (gastroesophageal reflux disease) History of thyroid cancer Hyperlipidemia Hypertension Hypothyroid Osteoarthritis Subcutaneous mass of abdominal wall Surgical History Surgical History History of thyroidectomy Hx of bilateral hip replacements Lt MARTY: 05/04/11; Rt MARTY: 05/01/19 Hx of colonoscopy Family History Family History Father Cerebrovascular accident Mother Heart disease Sibling Breast cancer Social History Social History (Updated 02/23/23 @ 09:58 by Yumiko Templeton CMA) Smoking status: Never smoker Alcohol intake: current Alcohol use details: socially Substance use: never Substance use type: does not use Lack of Transportation: No Lack of Food: Never True Current Housing: I Have Housing Concerned About Future Housing: No Difficulty Paying Gas/Electric Bills: No Difficulty Paying for Meds: No Currently Unemployed: No Education: Master's Degree or Higher Difficulty w/ Childcare or Family Care: No Living arrangements: with family Occupation/Education: retired Gender identity (if verbalized by the patient): Male Spiritual care concerns: No Anes - Eval Final PreProcedure Day of Procedure 03/19/25 08:30 Patient weight: overweight Heart: regular rate and rhythm Lungs: clear to auscultation Airway: Mallampati scale class III Neurological: alert and oriented Last oral intake: >/= 8 hours ASA classification: II Emergent: no Anesthetic plan: proceed Anesthesia type and monitoring: general GIVS and standard monitoring Results Review: All pre-operative results and documents have been reviewed as part of the pre-operative evaluation. Informed Consent: The patient's anesthetic plan and its attendant risks and benefits were discussed with the patient/family/POA. Questions were solicited and answers provided to the satisfaction of the patient/family/POA.
[2025-03-19] MEDS: LACTATED RINGERS 1,000 ML 150 ML IV CONT (09:12)
--- NOTE | 2025-03-19 09:29 | PM.IMHP ---
H&P: HPI History of Present Illness Date/Time: 03/19/25 09:29 Chief Complaint: GERD, hiatal hernia, screening for colorectal cancer Narrative: This is a 74-year-old man who presents for EGD and colonoscopy. He has been experiencing frequent belching and some abdominal discomfort. He denies any significant acid reflux. Most of his symptoms are after eating. He had a colonoscopy about 8 years ago which was normal. He denies any hematochezia or melena. He denies family history of colon cancer. Review of Systems Review of Systems: All systems reviewed & are unremarkable except as noted in HPI and below Constitutional: Constitutional: Denies chills, Denies fever(s), Denies headache(s) and Denies weight loss Eyes: Eyes: Denies change in vision ENT: Denies dizziness, Denies headache(s), Denies neck mass and Denies throat swelling Cardiovascular: Cardiovascular: Denies chest pain, Denies lightheadedness and Denies dyspnea Respiratory: Respiratory: Denies cough, Denies dyspnea and Denies wheezing Gastrointestinal: Gastrointestinal: Denies abdominal pain, Denies change in bowel habits, Denies nausea and Denies vomiting Genitourinary: Genitourinary: Denies hematuria and Denies dysuria Musculoskeletal: Musculoskeletal: Reports as per HPI Integumentary/Breasts: Skin/Breast: Reports as per HPI Neurologic: Denies dizziness and Denies headache(s) Allergic/Immunologic: Allergic/Immunologic: Denies throat swelling and Denies wheezing [facility] Past Medical History Medical History (Updated 03/19/25 @ 09:31 by Vijay Underwood DO) GERD (gastroesophageal reflux disease) Degenerative arthritis of right knee BPH (benign prostatic hyperplasia) Subcutaneous mass of abdominal wall Diastasis recti Osteoarthritis History of thyroid cancer Hypothyroid Hypertension Hyperlipidemia Surgical History Surgical History Hx of colonoscopy Hx of bilateral hip replacements Lt MARTY: 05/04/11; Rt MARTY: 05/01/19 History of thyroidectomy Family History Family History Father Cerebrovascular accident Mother Heart disease Sibling Breast cancer Social History Social History (Updated 02/23/23 @ 09:58 by Yumiko Templeton CMA) Smoking status: Never smoker Alcohol intake: current Alcohol use details: socially Substance use: never Substance use type: does not use Lack of Transportation: No Lack of Food: Never True Current Housing: I Have Housing Concerned About Future Housing: No Difficulty Paying Gas/Electric Bills: No Difficulty Paying for Meds: No Currently Unemployed: No Education: Master's Degree or Higher Difficulty w/ Childcare or Family Care: No Living arrangements: with family Occupation/Education: retired Gender identity (if verbalized by the patient): Male Spiritual care concerns: No Meds Home Medications and Allergies Home Medications ?Medication ?Instructions ?Recorded ?Confirmed ?Type aspirin 81 mg chewable tablet 81 mg PO DAILY 04/10/19 03/19/25 History carvedilol 3.125 mg tablet 3.125 mg PO DAILY 04/10/19 03/19/25 History levothyroxine 88 mcg tablet 88 mcg PO DAILY 04/10/19 03/19/25 History naproxen sodium 220 mg capsule 220 mg PO DAILY 04/10/19 03/12/25 History (Aleve) tamsulosin 0.4 mg capsule 0.4 mg PO DAILY 04/10/19 03/19/25 History oxycodone-acetaminophen 5 mg-325 1 - 2 tablet PO Q4H PRN pain #30 05/02/19 03/12/25 Rx mg tablet tabs evolocumab 140 mg/mL subcutaneous 140 mg subcut [id number] 03/12/25 03/12/25 History pen injector (Tal Milton) Allergies Allergy/AdvReac Type Severity Reaction Status Date / Time No Known Allergies Allergy Mild Verified 03/19/25 08:28 Vital Signs Vital Signs - 24 hr 03/19/25 08:29 Temperature 97.4 F L Pulse Rate 61 Respiratory Rate 18 Blood Pressure 149/73 H Pulse Oximetry 98 Oxygen Delivery Room Air Exam Const: General: no acute distress and alert Orientation/consciousness: patient oriented x3 HENMT: Head: normocephalic and atraumatic Ears: hearing grossly normal bilaterally Face/Nose/Sinus: Normal nares present Mouth: Yes Normal oral and palatal mucosa present Eyes: Periorbital: periorbital findings normal Sclera: sclerae normal EOM: EOMs intact bilaterally Neck: Neck: normal visual inspection, no lymphadenopathy and trachea midline Chest: Chest palpation & inspection: normal inspection of the chest Resp: Effort & Inspection: normal respiratory effort Auscultation: clear to auscultation bilaterally Cardio: Jugular venous distension: no JVD Rate: regular rate Rhythm: regular rhythm Heart sounds: S1 normal heart sound present and S2 normal heart sound present Peripheral pulses: Peripheral pulses 2+ throughout GI: Inspection: normal to inspection GI Palp: Yes Soft to palpation, No Tenderness to palpation present (GI), No Guarding due to palpation present (GI) and No Rebound tenderness present Percussion: Yes normal to percussion Auscultation: normal bowel sounds : General: Yes no CVA tenderness Back/Spine/Pelvis: Back: no CVA tenderness Neuro: General: patient oriented x3, no focal motor deficits and CN's II-XI intact bilaterally Cognition (Neuro): normal cognition Speech: normal speech Motor exam (neuro): 5/5 motor strength present throughout Extrem: General: capillary refill normal and no clubbing, cyanosis or edema Assessment and Plan Assessment and plan (1) Hiatal hernia: Code(s): K44.9 - Diaphragmatic hernia without obstruction or gangrene Status: Acute Assessment and Plan: I have recommended EGD and colonoscopy. I have discussed the procedure, risks, benefits, and alternatives. Questions were answered. Patient is agreeable to proceed. (2) Screening for colorectal cancer: Code(s): Z12.11 - Encounter for screening for malignant neoplasm of colon; Z12.12 - Encounter for screening for malignant neoplasm of rectum Status: Acute (3) GERD (gastroesophageal reflux disease): Code(s): K21.9 - Gastro-esophageal reflux disease without esophagitis Status: Acute
--- NOTE | 2025-03-19 09:53 | S_PTH ---
PATIENT: Dilshad Stewart LOC: [facility] #:[id number] AGE/SX: 74/M ROOM: RE03/19/[address]: Vijay Underwood DO : 1950 BED: DIS: 03/19/2025 SPEC #: [id number] RECD: 03/19/25 11:41 STATUS: LILIBETH REQ #: [id number] ZENIA: 03/19/25 09:[address]: Vijay Underwood DEPT: [facility] Surgical RECD BY: Kyra Bustamante ENTERED: 03/19/25 11:42 SP TYPE: Surgical OTHR DR: Carrie Bernstein MD Tissues: A - Gastric Biopsy Procedures: Hematoxylin and Eosin Stain Gross and Microscopic Level 4
--- NOTE | 2025-03-19 09:56 | SUR.OPER ---
EGD ended at 50. Colonoscopy started at .57
[2025-03-19 10:12] VITALS: BP 109/57; PULSE 60; RESP 12; O2SAT 100
[2025-03-19 10:22] VITALS: BP 130/74; PULSE 58; RESP 11; O2SAT 100
[2025-03-19 10:32] VITALS: BP 136/82; PULSE 58; RESP 15; O2SAT 100
[2025-03-19 10:48] LABS: HPYLORIRESULT Negative (Negative)
== END 2025-03-19 10:46 | disposition home or self-care (01) ==
PROVIDERS: PCP Internal Medicine; Visit Provider Surgery
PROC: 0DJD8ZZ Inspection of Lower Intestinal Tract, Via Natural or Artificial Opening Endoscopic (ICD-10-PCS; CPT 45378; principal; 2025-03-19 09:30)
PROC: 0DJ08ZZ Inspection of Upper Intestinal Tract, Via Natural or Artificial Opening Endoscopic (ICD-10-PCS; CPT 43239; 2025-03-19 09:30)
DX: Z12.11 Encounter for screening for malignant neoplasm of colon (principal); K64.8 Other hemorrhoids; K22.70 Barrett's esophagus without dysplasia; K21.9 Gastro-esophageal reflux disease without esophagitis; K22.5 Diverticulum of esophagus, acquired; K31.9 Disease of stomach and duodenum, unspecified; K44.9 Diaphragmatic hernia without obstruction or gangrene; E03.9 Hypothyroidism, unspecified; I10 Essential (primary) hypertension; E78.5 Hyperlipidemia, unspecified; M17.11 Unilateral primary osteoarthritis, right knee; N40.0 Benign prostatic hyperplasia without lower urinary tract symptoms; Z79.82 Long term (current) use of aspirin; Z79.1 Long term (current) use of non-steroidal anti-inflammatories (NSAID); Z79.891 Long term (current) use of opiate analgesic; Z79.85 Long-term (current) use of injectable non-insulin antidiabetic drugs; Z85.850 Personal history of malignant neoplasm of thyroid; Z80.3 Family history of malignant neoplasm of breast; Z82.49 Family history of ischemic heart disease and other diseases of the circulatory system
CPT/HCPCS: 43239; G0105; 87081; 88305; J2003; J2704; J7120

== ENCOUNTER 2025-03-29 07:54 | Outpatient (CLI) | payer MEDICARE, OTHER, SELFPAY ==
--- NOTE | ~2025-03-29 | NM_ITS ---
EXAM: NM gastric emptying study DATE: 03/29/2025 12:30 INDICATION: Gastroparesis TECHNIQUE: A gastric emptying study was performed using the methodology of Randa CAMILO, et al. J Nucl Med 2007; 48:568-572. The patient was given a meal consisting of 2 scrambled eggs labeled with 0.972 mCi Tc-99m sulfur colloid, 2 slices of toast, two packages of jam, and approximately 120 mL of water. Simultaneous anterior and posterior 1-min images of the abdomen were obtained with the patient supine at multiple time points over a total period of 4 hours. The geometric mean of anterior and posterior views was determined, and the percentage retention was calculated for each time point. COMPARISON: None. FINDINGS: Gastric retention of the radiotracer-labeled meal was 79%, 38%, and 9% at the 1- hour, 2-hour, and 4-hour time points, respectively. With this technique, apparent rapid gastric emptying is suggested by <30% gastric retention at 1 hour. Delayed gastric emptying is defined by gastric retention of >90% at 1 hour, >60% retention at 2 hours, or >10% retention at 4 hours. IMPRESSION: 1. Normal gastric emptying. Reviewed, dictated and finalized at location A. IMPRESSION: 1. Normal gastric emptying.
== END 2025-03-29 07:55 | disposition home or self-care (01) ==
PROVIDERS: PCP Internal Medicine; Visit Provider Surgery
DX: K31.84 Gastroparesis (principal)
CPT/HCPCS: 78264; A9541

== ENCOUNTER 2025-04-22 10:08 | Outpatient (CLI) | payer MEDICARE, OTHER, SELFPAY ==
--- NOTE | ~2025-04-22 | NM_ITS ---
EXAM/PROCEDURE: NM_HEPATWP_NM HISTORY: RUQ Pain COMPARISON: None available. TECHNIQUE: Hepatobiliary scintigraphy performed. Dose: 5.8 mCi technetium 99M/Choletec administered. FINDINGS: Prompt homogeneous liver uptake is noted. The gallbladder is seen at approximately 15 minutes. Following administration of Kinevac, ejection fraction calculated at 9%. IMPRESSION: No evidence of cystic duct obstruction. Gallbladder ejection fraction is markedly abnormal at 9% which could be associated with chronic cholecystitis. Procedure: Hepatobiliary scan TECHNIQUE: Standard technique for hepatically scintigraphy performed. Patient was injected with 1.6 mcg of Kinevac intravenously following visualization of small bowel activity. NOTE: Technologist indicates that patient experienced abdominal discomfort on injection of Kinevac. I discussed this with the technologist later who said that the patient was pain free when he left the department following completion of exam. Dose: 5.8 mCi technetium 99m Choletec. COMPARISON: None FINDINGS: Prompt homogeneous liver uptake is noted. The gallbladder is seen at approximately 15 minutes. After Kinevac administration, ejection fraction calculated at 9%. IMPRESSION: No evidence of cystic duct obstruction. Significantly abnormal ejection fraction of 9% may be associated with chronic cholecystitis. Reviewed, dictated and finalized at location A. 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 Gallbladder ejection fraction is marked ly abnormal at 9% which could be associated with chronic cholecystitis. Procedure: Hepatobiliary scan TECHNIQUE: Standard technique for hepatically scintigraphy performed. Patient w as injected with 1.6 mcg of Kinevac intravenously following visualization of sm all bowel activity. NOTE: Technologist indicates that patient experienced abdominal discomfort on i njection of Kinevac. I discussed this with the technologist later who said that the patient was pain free when he left the department following completion of exam. Dose: 5.8 mCi technetium 99m Choletec. COMPARISON: None FINDINGS: Prompt homogeneous liver uptake is noted. The gallbladder is seen at approximately 15 minutes. After Kinevac administration, ejection fraction calculated at 9%. IMPRESSION: No evidence of cystic duct obstruction. Significantly abnormal ejec tion fraction of 9% may be associated with chronic cholecystitis.
== END 2025-04-22 10:09 | disposition home or self-care (01) ==
LOC: CHSIMG 10:10
PROVIDERS: PCP Internal Medicine; Visit Provider Internal Medicine
DX: R10.11 Right upper quadrant pain (principal)
CPT/HCPCS: 78227; A9537; J2805